=== PATIENT | female | born 1960 | race African-American/Black ===

== ENCOUNTER 2021-05-01 22:23 | Inpatient (IN) | payer OTHER ==
[~2021-05-01] VITALS: Ht 165.1 cm; Wt 119.7 kg
[2021-05-01] MEDS ORDERED: ACETAMINOPHEN 325MG TABLET PO STA (22:48)
[2021-05-01] MEDS ORDERED: CEFTRIAXONE 1 G PREMIX 50 ML IV ONE (23:00)
[2021-05-01] MEDS ORDERED: SODIUM CHLORIDE 0.9% 1000ML BAG (SEPSIS BOLUS) IV ONE (23:00)
[2021-05-01] MEDS ORDERED: AZITHROMYCIN 500MG/250ML 250 ML IV ONE (23:00)
[2021-05-01 23:29] LABS: BASOPHILS % 0.2 % (0.0-2.0); HEMATOCRIT. 35.6 % (36.0-48.0); HEMOGLOBIN. 11.9 g/dL (12.0-16.0); LYMPHOCYTES % 15.7 % (20.0-50.0); MEAN CORPUSCULAR HEMOGLOBIN 26.9 pg (28.0-32.0); MEAN CORPUSCULAR VOLUME 80.4 fL (81.0-99.0); MEAN PLATELET VOLUME 10.2 fl (7.4-10.4); MONOCYTES % 3.5 % (2.0-8.0); NEUTROPHILS % 80.6 % (40.0-76.0); PLATELET 174 x1000/uL (130-400); RED BLOOD CELL COUNT 4.43 mill/uL (4.2-5.4); RED CELL DISTRIBUTION WIDTH 14.6 % (11.6-14.6)
[2021-05-01 23:32] LABS: CHLORIDE 102 mEq/L (98-107)
[2021-05-01 23:53] LABS: D-DIMER 0.53 mg/L FEU (<0.50); PROTHROMBIN TIME 10.5 sec (9.6-11.0)
[2021-05-02] MEDS ORDERED: FAMOTIDINE 20MG/2ML VIAL IV STA (00:35)
[2021-05-02] MEDS ORDERED: DEXAMETHASONE 4MG/ML 1ML VIAL IV SCH (01:00)
[2021-05-02] MEDS ORDERED: DEXTROSE 50% WATER 50ML SYRINGE IV PRN (01:30)
[2021-05-02] MEDS ORDERED: AZITHROMYCIN 500MG/250ML 250 ML IV ONE (01:30)
[2021-05-02 03:40] LABS: CLARITY URINE CLEAR (CLEAR); COLOR URINE YELLOW (YELLOW); KETONES URINE NEGATIVE (NEGATIVE); LEUKOCYTE ESTERASE URINE TRACE (NEGATIVE); NITRITE URINE NEGATIVE (NEGATIVE); OCCULT BLOOD URINE NEGATIVE (NEGATIVE); PH URINE 5.5 (4.5-8.0); PROTEIN URINE 2+ (NEGATIVE); SPECIFIC GRAVITY URINE 1.017 (1.005-1.030); UROBILINOGEN URINE 0.2 E.U./dL (0.2-1.0)
[2021-05-02] MEDS ORDERED: GUAIFENESIN 200MG/10ML SUGAR FREE UDC PO PRN (06:15)
[2021-05-02] MEDS ORDERED: GUAIFENESIN 200MG TABLET PO PRN (06:15)
[2021-05-02] MEDS: BLOOD SUGAR DIAGNOSTIC STRIP TEST SCH ×4 (07:01→21:57)
[2021-05-02] MEDS: INSULIN LISPRO 100 UNITS/ML SUBCUT SCH ×4 (07:10→21:00)
[2021-05-02] MEDS ORDERED: FAMOTIDINE 20MG/2ML VIAL IV SCH (09:00)
[2021-05-02] MEDS: DEXAMETHASONE 10 MG/ML VIAL IV SCH (09:14)
[2021-05-02] MEDS: FAMOTIDINE 20MG/2ML VIAL IV SCH ×2 (09:14→22:01)
[2021-05-02] MEDS: ENOXAPARIN 40MG/0.4ML SYR SUBCUT SCH (09:14)
[2021-05-02 10:46] VITALS: BP 119/64
[2021-05-02 12:00] VITALS: BP 99/58
[2021-05-02] MEDS: GUAIFENESIN-DM 200MG-20MG/10ML UDC PO PRN ×3 (12:55→22:57)
[2021-05-02] MEDS: ASCORBIC ACID 250 MG TABLET PO SCH (12:56)
[2021-05-02] MEDS: CHOLECALCIFEROL (D3) 1000 UNIT TABLET PO SCH (12:56)
[2021-05-02] MEDS: ZINC SULFATE 220 MG ( 50 ) CAPSULE PO SCH (12:56)
[2021-05-02 16:00] VITALS: BP 108/73
[2021-05-02] MEDS: ACETAMINOPHEN 325MG TABLET PO PRN (17:46)
[2021-05-02 20:00] VITALS: BP 117/74
[2021-05-02] MEDS ORDERED: CEFTRIAXONE 1,000 MG in DEXTROSE 5% WATER 50 ML IV SCH (21:00)
[2021-05-02] MEDS: CEFTRIAXONE 1,000 MG in DEXTROSE 5% WATER 50 ML IV SCH (22:01)
[2021-05-02] MEDS: AZITHROMYCIN 500MG in DEXTROSE 5% WATER 250ML IV SCH (22:01)
[2021-05-03] MEDS ORDERED: AZITHROMYCIN 250 MG in DEXT 5% WATER 250 ML IV SCH
[2021-05-03] MEDS: BLOOD SUGAR DIAGNOSTIC STRIP TEST SCH ×4 (05:03→21:01)
[2021-05-03] MEDS: GUAIFENESIN-DM 200MG-20MG/10ML UDC PO PRN ×2 (05:06→19:26)
[2021-05-03] MEDS: INSULIN LISPRO 100 UNITS/ML SUBCUT SCH ×4 (07:45→21:00)
[2021-05-03 08:00] VITALS: BP 107/74
[2021-05-03] MEDS: DEXAMETHASONE 10 MG/ML VIAL IV SCH (08:16)
[2021-05-03] MEDS: CHOLECALCIFEROL (D3) 1000 UNIT TABLET PO SCH (08:16)
[2021-05-03] MEDS: ASCORBIC ACID 250 MG TABLET PO SCH (08:16)
[2021-05-03] MEDS: FAMOTIDINE 20MG/2ML VIAL IV SCH ×2 (08:16→21:05)
[2021-05-03] MEDS: ZINC SULFATE 220 MG ( 50 ) CAPSULE PO SCH (08:16)
[2021-05-03] MEDS: ENOXAPARIN 40MG/0.4ML SYR SUBCUT SCH (08:17)
[2021-05-03 12:00] VITALS: BP 120/78
[2021-05-03] MEDS ORDERED: DOCUSATE SODIUM SUGAR FREE 100MG/10ML UDC NG PRN (13:00)
[2021-05-03 16:00] VITALS: BP 112/71
[2021-05-03 20:00] VITALS: BP 108/68
[2021-05-03] MEDS: AZITHROMYCIN 500MG in DEXTROSE 5% WATER 250ML IV SCH (21:05)
[2021-05-03] MEDS: CEFTRIAXONE 1,000 MG in DEXTROSE 5% WATER 50 ML IV SCH (21:05)
[2021-05-03] MEDS: ACETAMINOPHEN 325MG TABLET PO PRN (21:09)
[2021-05-04] VITALS: BP 116/72
[2021-05-04] MEDS: GUAIFENESIN-DM 200MG-20MG/10ML UDC PO PRN ×2 (03:23→16:14)
[2021-05-04 04:00] VITALS: BP 121/78
[2021-05-04 05:16] LABS: BASOPHILS % 0.1 % (0.0-2.0); HEMATOCRIT. 36.2 % (36.0-48.0); LYMPHOCYTES % 7.4 % (20.0-50.0); MEAN CORPUSCULAR HEMOGLOBIN 26.6 pg (28.0-32.0); MEAN CORPUSCULAR VOLUME 80.4 fL (81.0-99.0); MEAN PLATELET VOLUME 9.8 fl (7.4-10.4); MONOCYTES % 3.6 % (2.0-8.0); NEUTROPHILS % 88.9 % (40.0-76.0); PLATELET 235 x1000/uL (130-400); RED CELL DISTRIBUTION WIDTH 14.9 % (11.6-14.6)
[2021-05-04 05:53] LABS: CHLORIDE 105 mEq/L (98-107)
[2021-05-04 08:00] VITALS: BP 133/81
[2021-05-04] MEDS: INSULIN LISPRO 100 UNITS/ML SUBCUT SCH ×2 (08:10→12:18)
[2021-05-04] MEDS: BLOOD SUGAR DIAGNOSTIC STRIP TEST SCH ×2 (08:20→12:18)
[2021-05-04] MEDS: ASCORBIC ACID 250 MG TABLET PO SCH (08:21)
[2021-05-04] MEDS: FAMOTIDINE 20MG/2ML VIAL IV SCH ×2 (08:21→21:32)
[2021-05-04] MEDS: CHOLECALCIFEROL (D3) 1000 UNIT TABLET PO SCH (08:21)
[2021-05-04] MEDS: DEXAMETHASONE 10 MG/ML VIAL IV SCH (08:22)
[2021-05-04] MEDS: ZINC SULFATE 220 MG ( 50 ) CAPSULE PO SCH (08:22)
[2021-05-04] MEDS: ENOXAPARIN 40MG/0.4ML SYR SUBCUT SCH (08:22)
[2021-05-04 12:00] VITALS: BP 123/71
[2021-05-04 16:00] VITALS: BP 119/72
[2021-05-04 20:00] VITALS: BP 114/68
[2021-05-04] MEDS: AZITHROMYCIN 500MG in DEXTROSE 5% WATER 250ML IV SCH ×2 (21:32→23:43)
[2021-05-04] MEDS: CEFTRIAXONE 1,000 MG in DEXTROSE 5% WATER 50 ML IV SCH (21:32)
[2021-05-04] MEDS ORDERED: AZITHROMYCIN 500 MG TABLET PO NR (23:45)
[2021-05-05] VITALS: BP 110/62
[2021-05-05 04:00] VITALS: BP 118/77
[2021-05-05 08:00] VITALS: BP 124/79
[2021-05-05] MEDS: FAMOTIDINE 20MG/2ML VIAL IV SCH ×2 (09:52→22:10)
[2021-05-05] MEDS: ENOXAPARIN 40MG/0.4ML SYR SUBCUT SCH (09:52)
[2021-05-05] MEDS: ZINC SULFATE 220 MG ( 50 ) CAPSULE PO SCH (09:53)
[2021-05-05] MEDS: CHOLECALCIFEROL (D3) 1000 UNIT TABLET PO SCH (09:53)
[2021-05-05] MEDS: ASCORBIC ACID 250 MG TABLET PO SCH (09:53)
[2021-05-05] MEDS: DEXAMETHASONE 10 MG/ML VIAL IV SCH (09:53)
[2021-05-05 12:00] VITALS: BP 141/83
[2021-05-05 16:00] VITALS: BP 124/68
[2021-05-05] MEDS ORDERED: DOCUSATE SODIUM SUGAR FREE 100MG/10ML UDC PO PRN (18:30)
[2021-05-05] MEDS: BENZONATATE 100MG CAPSULE PO PRN (18:44)
[2021-05-05] MEDS: LACTULOSE 20G/30ML UDC PO PRN (18:45)
[2021-05-05] MEDS: ACETAMINOPHEN 650MG/20.3ML UDC PO PRN (19:17)
[2021-05-05] MEDS ORDERED: BENZONATATE 200MG CAPSULE PO NR (19:30)
[2021-05-05 20:42] VITALS: BP 160/91
[2021-05-05] MEDS: AZITHROMYCIN 500MG in DEXTROSE 5% WATER 250ML IV SCH (22:10)
[2021-05-05] MEDS: ENOXAPARIN 30MG/0.3ML SYR SUBCUT SCH (22:10)
[2021-05-05] MEDS: CEFTRIAXONE 1,000 MG in DEXTROSE 5% WATER 50 ML IV SCH (22:10)
[2021-05-06] VITALS: BP 131/76
[2021-05-06 04:00] VITALS: BP 113/71
[2021-05-06 08:00] VITALS: BP 133/70
[2021-05-06] MEDS: FAMOTIDINE 20MG/2ML VIAL IV SCH ×2 (09:06→20:26)
[2021-05-06] MEDS: CHOLECALCIFEROL (D3) 1000 UNIT TABLET PO SCH (09:06)
[2021-05-06] MEDS: ENOXAPARIN 30MG/0.3ML SYR SUBCUT SCH ×2 (09:06→20:26)
[2021-05-06] MEDS: DEXAMETHASONE 10 MG/ML VIAL IV SCH (09:06)
[2021-05-06] MEDS: ZINC SULFATE 220 MG ( 50 ) CAPSULE PO SCH (09:06)
[2021-05-06] MEDS: ASCORBIC ACID 250 MG TABLET PO SCH (09:07)
[2021-05-06 12:00] VITALS: BP 121/74
[2021-05-06 16:00] VITALS: BP 119/64
[2021-05-06 20:00] VITALS: BP 123/78
[2021-05-06] MEDS: AZITHROMYCIN 500MG in DEXTROSE 5% WATER 250ML IV SCH (20:25)
[2021-05-06] MEDS: BENZONATATE 100MG CAPSULE PO PRN (20:26)
[2021-05-06] MEDS: ACETAMINOPHEN 325MG TABLET PO PRN (20:26)
[2021-05-06] MEDS: CEFTRIAXONE 1,000 MG in DEXTROSE 5% WATER 50 ML IV SCH (20:26)
[2021-05-06 23:44] LABS: BG BASE EXCESS 1.4 mmol/L (-2.0-2.0); BG CARBOXYHEMOGLOBIN 0.3 % (0.5-1.5); BG DEOXYHEMOGLOBIN 1.4 % (0.0-5.0); BG FRACTION INSPIRED OXYGEN 100; BG HCO3 ACT 24.4 mmol/L (22.0-26.0); BG METHEMOGLOBIN 0.2 % (0.0-1.5); BG OXYGEN SATURATION 98.6 % (92.0-98.5); BG OXYHEMOGLOBIN 98.1 % (94.0-97.0); BG PCO2 33.5 mmHg (35.0-45.0); BG PH 7.481 (7.350-7.450); BG SAMPLE SITE RIGHT RADIAL; BG TOTAL HEMOGLOBIN 12.6 g/dL (12.0-18.0); BG VENT MODE MASK - BIPAP
[2021-05-07] VITALS: BP 127/68
[2021-05-07 04:00] VITALS: BP 115/72
[2021-05-07 06:38] LABS: CHLORIDE 102 mEq/L (98-107)
[2021-05-07 06:53] LABS: HEMATOCRIT. 35.5 % (36.0-48.0); HEMOGLOBIN. 11.9 g/dL (12.0-16.0); MEAN CORPUSCULAR HEMOGLOBIN 26.7 pg (28.0-32.0); MEAN CORPUSCULAR VOLUME 79.9 fL (81.0-99.0); PLATELET 204 x1000/uL (130-400); RED BLOOD CELL COUNT 4.45 mill/uL (4.2-5.4); RED CELL DISTRIBUTION WIDTH 14.9 % (11.6-14.6)
[2021-05-07 08:00] VITALS: BP 127/85
[2021-05-07] MEDS: FAMOTIDINE 20MG/2ML VIAL IV SCH ×2 (08:41→20:28)
[2021-05-07] MEDS: ASCORBIC ACID 250 MG TABLET PO SCH (08:42)
[2021-05-07] MEDS: DEXAMETHASONE 10 MG/ML VIAL IV SCH (08:42)
[2021-05-07] MEDS: CHOLECALCIFEROL (D3) 1000 UNIT TABLET PO SCH (08:42)
[2021-05-07] MEDS: ACETAMINOPHEN 325MG TABLET PO PRN (08:42)
[2021-05-07] MEDS: ZINC SULFATE 220 MG ( 50 ) CAPSULE PO SCH (08:42)
[2021-05-07] MEDS: ENOXAPARIN 30MG/0.3ML SYR SUBCUT SCH ×2 (08:43→20:28)
[2021-05-07 12:00] VITALS: BP 127/82
[2021-05-07 16:00] VITALS: BP 110/71
[2021-05-07 20:00] VITALS: BP 108/46
[2021-05-08] VITALS: BP 117/73
[2021-05-08 05:43] LABS: CHLORIDE 103 mEq/L (98-107)
[2021-05-08 06:25] LABS: PLATELET ESTIMATE NORMAL
[2021-05-08 08:00] VITALS: BP 111/64
[2021-05-08] MEDS: CHOLECALCIFEROL (D3) 1000 UNIT TABLET PO SCH (09:50)
[2021-05-08] MEDS: DEXAMETHASONE 10 MG/ML VIAL IV SCH (09:50)
[2021-05-08] MEDS: ZINC SULFATE 220 MG ( 50 ) CAPSULE PO SCH (09:50)
[2021-05-08] MEDS: ENOXAPARIN 30MG/0.3ML SYR SUBCUT SCH ×2 (09:50→21:31)
[2021-05-08] MEDS: FAMOTIDINE 20MG/2ML VIAL IV SCH ×2 (09:50→21:31)
[2021-05-08] MEDS: ASCORBIC ACID 250 MG TABLET PO SCH (09:51)
[2021-05-08 12:00] VITALS: BP 119/77
[2021-05-08 16:00] VITALS: BP 134/68
[2021-05-08 20:00] VITALS: BP 112/71
[2021-05-09] VITALS (21 sets, daily range): BP systolic 114–147; BP diastolic 68–89
[2021-05-09 07:12] LABS: HEMATOCRIT. 35.7 % (36.0-48.0); HEMOGLOBIN. 11.6 g/dL (12.0-16.0); MEAN CORPUSCULAR HEMOGLOBIN 26.3 pg (28.0-32.0); MEAN CORPUSCULAR VOLUME 80.5 fL (81.0-99.0); MEAN PLATELET VOLUME 8.9 fl (7.4-10.4); PLATELET 211 x1000/uL (130-400); RED BLOOD CELL COUNT 4.43 mill/uL (4.2-5.4); RED CELL DISTRIBUTION WIDTH 14.7 % (11.6-14.6)
[2021-05-09 07:54] LABS: CHLORIDE 102 mEq/L (98-107)
[2021-05-09] MEDS: ACETAMINOPHEN 650MG/20.3ML UDC PO PRN ×2 (08:08→23:38)
[2021-05-09] MEDS: DEXAMETHASONE 10 MG/ML VIAL IV SCH (08:08)
[2021-05-09] MEDS: CHOLECALCIFEROL (D3) 1000 UNIT TABLET PO SCH (08:08)
[2021-05-09] MEDS: FAMOTIDINE 20MG/2ML VIAL IV SCH ×2 (08:08→20:01)
[2021-05-09] MEDS: ASCORBIC ACID 250 MG TABLET PO SCH (08:08)
[2021-05-09] MEDS: ZINC SULFATE 220 MG ( 50 ) CAPSULE PO SCH (08:08)
[2021-05-09] MEDS: ENOXAPARIN 30MG/0.3ML SYR SUBCUT SCH ×2 (08:09→20:01)
[2021-05-09] MEDS ORDERED: LIDOCAINE HCL/PF 1% 2ML VIAL ONE (09:32)
[2021-05-09 10:07] LABS: BG BASE EXCESS -0.2 mmol/L (-2.0-2.0); BG CARBOXYHEMOGLOBIN 0.2 % (0.5-1.5); BG DEOXYHEMOGLOBIN 9.6 % (0.0-5.0); BG HCO3 ACT 21.7 mmol/L (22.0-26.0); BG METHEMOGLOBIN 0.3 % (0.0-1.5); BG OXYGEN SATURATION 90.4 % (92.0-98.5); BG OXYHEMOGLOBIN 89.9 % (94.0-97.0); BG PCO2 27.6 mmHg (35.0-45.0); BG PH 7.513 (7.350-7.450); BG PO2 55.8 mmHg (75.0-100.0); BG SAMPLE SITE RIGHT BRACHIAL; BG TOTAL HEMOGLOBIN 12.5 g/dL (12.0-18.0); BG VENT MODE VAPOTHERM
[2021-05-09 12:18] LABS: HEMATOCRIT. 34.3 % (36.0-48.0); HEMOGLOBIN. 11.1 g/dL (12.0-16.0); MEAN CORPUSCULAR HEMOGLOBIN 26.2 pg (28.0-32.0); MEAN CORPUSCULAR VOLUME 80.6 fL (81.0-99.0); MEAN PLATELET VOLUME 8.9 fl (7.4-10.4); PLATELET 204 x1000/uL (130-400); RED BLOOD CELL COUNT 4.25 mill/uL (4.2-5.4); RED CELL DISTRIBUTION WIDTH 14.5 % (11.6-14.6)
[2021-05-09 12:20] LABS: PLATELET ESTIMATE NORMAL
[2021-05-09 13:12] LABS: PLATELET ESTIMATE NORMAL
[2021-05-09] MEDS: GUAIFENESIN-DM 200MG-20MG/10ML UDC PO PRN (16:49)
[2021-05-10] VITALS (48 sets, daily range): BP systolic 112–154; BP diastolic 44–94
[2021-05-10 05:49] LABS: HEMATOCRIT. 33.2 % (36.0-48.0); HEMOGLOBIN. 10.9 g/dL (12.0-16.0); MEAN CORPUSCULAR HEMOGLOBIN 26.2 pg (28.0-32.0); MEAN CORPUSCULAR VOLUME 79.5 fL (81.0-99.0); PLATELET 196 x1000/uL (130-400); RED BLOOD CELL COUNT 4.18 mill/uL (4.2-5.4); RED CELL DISTRIBUTION WIDTH 14.8 % (11.6-14.6)
[2021-05-10 05:59] LABS: CHLORIDE 106 mEq/L (98-107)
[2021-05-10 08:41] LABS: PLATELET ESTIMATE NORMAL
[2021-05-10] MEDS: CHOLECALCIFEROL (D3) 1000 UNIT TABLET PO SCH (09:00)
[2021-05-10] MEDS: ASCORBIC ACID 250 MG TABLET PO SCH (09:00)
[2021-05-10] MEDS: ZINC SULFATE 220 MG ( 50 ) CAPSULE PO SCH (09:00)
[2021-05-10] MEDS: FAMOTIDINE 20MG/2ML VIAL IV SCH ×2 (09:00→21:22)
[2021-05-10] MEDS: DEXAMETHASONE 10 MG/ML VIAL IV SCH (09:00)
[2021-05-10] MEDS: ENOXAPARIN 30MG/0.3ML SYR SUBCUT SCH ×2 (09:00→21:23)
[2021-05-10] MEDS: BENZONATATE 100MG CAPSULE PO PRN (10:08)
[2021-05-10] MEDS: ACETAMINOPHEN 650MG/20.3ML UDC PO PRN (10:08)
[2021-05-10] MEDS: GUAIFENESIN-DM 200MG-20MG/10ML UDC PO PRN (10:08)
[2021-05-10] MEDS: DIPHENHYDRAMINE 50MG/ML VIAL IV PRN (14:05)
[2021-05-10] MEDS: CEFEPIME 2,000 MG in DEXT 5% WATER 100 ML IV SCH (14:05)
[2021-05-11] VITALS (36 sets, daily range): BP systolic 114–148; BP diastolic 57–100
[2021-05-11] MEDS: DIPHENHYDRAMINE 50MG/ML VIAL IV PRN (02:09)
[2021-05-11] MEDS: CEFEPIME 2,000 MG in DEXT 5% WATER 100 ML IV SCH ×2 (02:09→13:21)
[2021-05-11] MEDS: GUAIFENESIN-DM 200MG-20MG/10ML UDC PO PRN (02:09)
[2021-05-11] MEDS: ALBUTEROL 6.7GM HFA INHALER ORI SCH ×3 (05:00→20:41)
[2021-05-11 06:05] LABS: HEMATOCRIT. 34.7 % (36.0-48.0); HEMOGLOBIN. 11.3 g/dL (12.0-16.0); MEAN CORPUSCULAR HEMOGLOBIN 26.3 pg (28.0-32.0); MEAN CORPUSCULAR VOLUME 80.8 fL (81.0-99.0); MEAN PLATELET VOLUME 9.4 fl (7.4-10.4); PLATELET 211 x1000/uL (130-400); RED BLOOD CELL COUNT 4.29 mill/uL (4.2-5.4)
[2021-05-11 06:22] LABS: CHLORIDE 105 mEq/L (98-107)
[2021-05-11] MEDS: DEXAMETHASONE 10 MG/ML VIAL IV SCH (08:21)
[2021-05-11] MEDS: FAMOTIDINE 20MG/2ML VIAL IV SCH ×2 (08:21→20:07)
[2021-05-11] MEDS: ZINC SULFATE 220 MG ( 50 ) CAPSULE PO SCH (08:21)
[2021-05-11] MEDS: ASCORBIC ACID 250 MG TABLET PO SCH (08:22)
[2021-05-11] MEDS: ENOXAPARIN 30MG/0.3ML SYR SUBCUT SCH ×2 (08:22→20:07)
[2021-05-11] MEDS: CHOLECALCIFEROL (D3) 1000 UNIT TABLET PO SCH (08:22)
[2021-05-11 17:39] LABS: PLATELET ESTIMATE NORMAL
[2021-05-12] VITALS (12 sets, daily range): BP systolic 113–135; BP diastolic 61–96
[2021-05-12] MEDS ORDERED: VANCOMYCIN 1,750 MG in DEXT 5% WATER 500 ML IV NR
[2021-05-12] MEDS: ALBUTEROL 6.7GM HFA INHALER ORI SCH (02:03)
[2021-05-12] MEDS: CEFEPIME 2,000 MG in DEXT 5% WATER 100 ML IV SCH ×2 (03:17→17:10)
[2021-05-12] MEDS: DEXAMETHASONE 10 MG/ML VIAL IV SCH (09:03)
[2021-05-12] MEDS: CHOLECALCIFEROL (D3) 1000 UNIT TABLET PO SCH (09:03)
[2021-05-12] MEDS: ASCORBIC ACID 250 MG TABLET PO SCH (09:03)
[2021-05-12] MEDS: FAMOTIDINE 20MG/2ML VIAL IV SCH ×2 (09:03→20:56)
[2021-05-12] MEDS: ZINC SULFATE 220 MG ( 50 ) CAPSULE PO SCH (09:03)
[2021-05-12] MEDS: ENOXAPARIN 30MG/0.3ML SYR SUBCUT SCH ×2 (09:04→20:58)
[2021-05-12 09:11] LABS: HEMATOCRIT. 35.1 % (36.0-48.0); HEMOGLOBIN. 11.3 g/dL (12.0-16.0); MEAN CORPUSCULAR HEMOGLOBIN 26.2 pg (28.0-32.0); MEAN CORPUSCULAR VOLUME 81.1 fL (81.0-99.0); PLATELET 207 x1000/uL (130-400); RED BLOOD CELL COUNT 4.33 mill/uL (4.2-5.4); RED CELL DISTRIBUTION WIDTH 14.6 % (11.6-14.6)
[2021-05-12 09:31] LABS: CHLORIDE 101 mEq/L (98-107)
[2021-05-12] MEDS ORDERED: IPRATROPIUM/ALBUTEROL 0.5-3(2.5)MG/3ML NEB HHN PRN (14:45)
[2021-05-12] MEDS: IPRATROPIUM/ALBUTEROL 0.5-3(2.5)MG/3ML NEB HHN SCH ×2 (16:00→21:19)
[2021-05-12] MEDS: VANCOMYCIN 1 G PREMIX 200 ML IV SCH (17:02)
[2021-05-12] MEDS: LORAZEPAM 2MG/ML CPJ IV PRN ×2 (17:43→20:58)
[2021-05-12 18:28] LABS: PLATELET ESTIMATE NORMAL
[2021-05-12] MEDS ORDERED: MEROPENEM 1,000 MG in SODIUM CHLORIDE 0.9% 100 ML IV SCH (20:00)
[2021-05-12] MEDS: DIPHENHYDRAMINE 50MG/ML VIAL IV PRN (21:37)
[2021-05-12] MEDS: METOPROLOL TARTRATE 5MG/5ML VIAL IV PRN (21:38)
[2021-05-12] MEDS: SODIUM CHLORIDE 0.9% 1,000 ML IV SCH (21:52)
[2021-05-13] VITALS (70 sets, daily range): BP systolic 81–180; BP diastolic 31–106
[2021-05-13] MEDS: IPRATROPIUM/ALBUTEROL 0.5-3(2.5)MG/3ML NEB HHN SCH ×5 (00:18→21:10)
[2021-05-13] MEDS: VANCOMYCIN 1 G PREMIX 200 ML IV SCH ×2 (00:29→13:37)
[2021-05-13] MEDS: LORAZEPAM 2MG/ML CPJ IV PRN (04:15)
[2021-05-13] MEDS: CEFEPIME 2,000 MG in DEXT 5% WATER 100 ML IV SCH ×2 (04:15→16:52)
[2021-05-13] MEDS: BUDESONIDE 0.5MG/2ML NEB HHN SCH ×2 (07:55→21:10)
[2021-05-13] MEDS ORDERED: SODIUM CHLORIDE 0.9% 10ML VIAL ONE (08:23)
[2021-05-13] MEDS ORDERED: ETOMIDATE 2MG/ML 10ML VIAL IV ONE (08:23)
[2021-05-13] MEDS ORDERED: VECURONIUM BROMIDE 10 MG/VIAL IV ONE (08:23)
[2021-05-13 08:59] LABS: BG BASE EXCESS -3.5 mmol/L (-2.0-2.0); BG CARBOXYHEMOGLOBIN 0.7 % (0.5-1.5); BG DEOXYHEMOGLOBIN 8.4 % (0.0-5.0); BG FRACTION INSPIRED OXYGEN 100; BG HCO3 ACT 21.4 mmol/L (22.0-26.0); BG METHEMOGLOBIN 0.4 % (0.0-1.5); BG OXYGEN SATURATION 91.5 % (92.0-98.5); BG OXYHEMOGLOBIN 90.5 % (94.0-97.0); BG PCO2 38.2 mmHg (35.0-45.0); BG PH 7.367 (7.350-7.450); BG PO2 64.6 mmHg (75.0-100.0); BG SAMPLE SITE LEFT BRACHIAL; BG TOTAL HEMOGLOBIN 12.6 g/dL (12.0-18.0); BG TOTAL RESPIRATORY RATE 54 b/min; BG VENT MODE MASK - BIPAP
[2021-05-13] MEDS: PROPOFOL 10MG/ML 100ML 100 ML IV PRN ×3 (10:08→17:21)
[2021-05-13] MEDS: CHOLECALCIFEROL (D3) 1000 UNIT TABLET PO SCH (10:27)
[2021-05-13] MEDS: ACETAMINOPHEN 325MG TABLET PO PRN (10:28)
[2021-05-13] MEDS: METOPROLOL TARTRATE 5MG/5ML VIAL IV PRN (10:28)
[2021-05-13] MEDS: ZINC SULFATE 220 MG ( 50 ) CAPSULE PO SCH (10:29)
[2021-05-13] MEDS: ASCORBIC ACID 250 MG TABLET PO SCH (10:29)
[2021-05-13] MEDS: ENOXAPARIN 30MG/0.3ML SYR SUBCUT SCH ×2 (10:29→22:13)
[2021-05-13] MEDS: DEXAMETHASONE 10 MG/ML VIAL IV SCH (10:29)
[2021-05-13] MEDS: FAMOTIDINE 20MG/2ML VIAL IV SCH ×2 (10:29→22:12)
[2021-05-13] MEDS: FENTANYL CITRATE/PF 2,500 MCG in SODIUM CHLORIDE 0.9% 200 ML IV PRN ×2 (10:48→12:23)
[2021-05-13 11:25] LABS: BG BASE EXCESS -5.3 mmol/L (-2.0-2.0); BG CARBOXYHEMOGLOBIN 0.7 % (0.5-1.5); BG DEOXYHEMOGLOBIN 10.5 % (0.0-5.0); BG FRACTION INSPIRED OXYGEN 100; BG HCO3 ACT 21.8 mmol/L (22.0-26.0); BG METHEMOGLOBIN 0.6 % (0.0-1.5); BG OXYGEN SATURATION 89.4 % (92.0-98.5); BG OXYHEMOGLOBIN 88.2 % (94.0-97.0); BG PH 7.266 (7.350-7.450); BG PO2 65.6 mmHg (75.0-100.0); BG SAMPLE SITE LEFT BRACHIAL; BG TOTAL HEMOGLOBIN 12.7 g/dL (12.0-18.0); BG TOTAL RESPIRATORY RATE 34 b/min; BG VENT MODE VENT - AC
[2021-05-13] MEDS: PHENYLEPHRINE 100 MG in DEXT 5% WATER 240 ML IV PRN (12:24)
[2021-05-13] MEDS: SODIUM CHLORIDE 0.9% 1,000 ML IV SCH (13:37)
[2021-05-13 17:25] LABS: HEMATOCRIT. 34.3 % (36.0-48.0); HEMOGLOBIN. 11.1 g/dL (12.0-16.0); MEAN CORPUSCULAR HEMOGLOBIN 25.9 pg (28.0-32.0); MEAN CORPUSCULAR VOLUME 80.3 fL (81.0-99.0); MEAN PLATELET VOLUME 9.9 fl (7.4-10.4); PLATELET 263 x1000/uL (130-400); RED BLOOD CELL COUNT 4.28 mill/uL (4.2-5.4); RED CELL DISTRIBUTION WIDTH 15.1 % (11.6-14.6)
[2021-05-13 18:00] LABS: PLATELET ESTIMATE NORMAL
[2021-05-13] MEDS ORDERED: SODIUM POLYSTYRENE SULFONATE 15 G/60 ML BOT PO NR (21:00)
[2021-05-14] VITALS (94 sets, daily range): BP systolic 88–143; BP diastolic 54–95
[2021-05-14] MEDS ORDERED: VANCOMYCIN 750 MG PREMIX 150 ML IV SCH
[2021-05-14] MEDS: PROPOFOL 10MG/ML 100ML 100 ML IV PRN ×4 (00:08→16:26)
[2021-05-14] MEDS: PHENYLEPHRINE 100 MG in DEXT 5% WATER 240 ML IV PRN ×2 (00:50→12:06)
[2021-05-14] MEDS: IPRATROPIUM/ALBUTEROL 0.5-3(2.5)MG/3ML NEB HHN SCH ×6 (00:50→20:42)
[2021-05-14] MEDS: CEFEPIME 2,000 MG in DEXT 5% WATER 100 ML IV SCH (04:38)
[2021-05-14] MEDS: SODIUM CHLORIDE 0.9% 1,000 ML IV SCH ×2 (05:41→22:20)
[2021-05-14 06:38] LABS: HEMATOCRIT. 34.1 % (36.0-48.0); HEMOGLOBIN. 10.6 g/dL (12.0-16.0); MEAN CORPUSCULAR HEMOGLOBIN 25.2 pg (28.0-32.0); MEAN CORPUSCULAR VOLUME 80.8 fL (81.0-99.0); MEAN PLATELET VOLUME 9.8 fl (7.4-10.4); PLATELET 245 x1000/uL (130-400); RED BLOOD CELL COUNT 4.22 mill/uL (4.2-5.4); RED CELL DISTRIBUTION WIDTH 14.9 % (11.6-14.6)
[2021-05-14 08:25] LABS: BG CARBOXYHEMOGLOBIN 0.3 % (0.5-1.5); BG DEOXYHEMOGLOBIN 0.7 % (0.0-5.0); BG FRACTION INSPIRED OXYGEN 100; BG HCO3 ACT 21.3 mmol/L (22.0-26.0); BG METHEMOGLOBIN 0.4 % (0.0-1.5); BG OXYGEN SATURATION 99.3 % (92.0-98.5); BG OXYHEMOGLOBIN 98.6 % (94.0-97.0); BG PCO2 44.1 mmHg (35.0-45.0); BG PH 7.301 (7.350-7.450); BG PO2 206.4 mmHg (75.0-100.0); BG SAMPLE SITE LEFT BRACHIAL; BG TOTAL HEMOGLOBIN 11.7 g/dL (12.0-18.0); BG TOTAL RESPIRATORY RATE 34 b/min; BG VENT MODE VENT - AC
[2021-05-14] MEDS: BUDESONIDE 0.5MG/2ML NEB HHN SCH ×2 (08:48→20:42)
[2021-05-14] MEDS: ENOXAPARIN 30MG/0.3ML SYR SUBCUT SCH ×2 (09:04→21:06)
[2021-05-14] MEDS: ASCORBIC ACID 250 MG TABLET PO SCH (09:04)
[2021-05-14] MEDS: ZINC SULFATE 220 MG ( 50 ) CAPSULE PO SCH (09:04)
[2021-05-14] MEDS: CHOLECALCIFEROL (D3) 1000 UNIT TABLET PO SCH (09:04)
[2021-05-14] MEDS: FAMOTIDINE 20MG/2ML VIAL IV SCH ×2 (09:04→21:06)
[2021-05-14] MEDS: DEXAMETHASONE 10 MG/ML VIAL IV SCH (09:04)
[2021-05-14] MEDS: FENTANYL CITRATE/PF 2,500 MCG in SODIUM CHLORIDE 0.9% 200 ML IV PRN (10:40)
[2021-05-14] MEDS: CEFEPIME 1,000 MG in DEXTROSE 5% WATER 50 ML IV SCH (17:09)
[2021-05-14 17:28] LABS: PLATELET ESTIMATE NORMAL
[2021-05-14] MEDS ORDERED: VANCOMYCIN 750 MG PREMIX 150 ML IV NR (18:00)
[2021-05-15] VITALS (95 sets, daily range): BP systolic 101–131; BP diastolic 50–74
[2021-05-15] MEDS: IPRATROPIUM/ALBUTEROL 0.5-3(2.5)MG/3ML NEB HHN SCH ×5 (01:14→20:17)
[2021-05-15] MEDS: PROPOFOL 10MG/ML 100ML 100 ML IV PRN ×5 (01:25→20:02)
[2021-05-15] MEDS: CEFEPIME 1,000 MG in DEXTROSE 5% WATER 50 ML IV SCH (05:30)
[2021-05-15 07:01] LABS: HEMATOCRIT. 32.4 % (36.0-48.0); HEMOGLOBIN. 10.4 g/dL (12.0-16.0); MEAN CORPUSCULAR HEMOGLOBIN 25.7 pg (28.0-32.0); MEAN CORPUSCULAR VOLUME 80.5 fL (81.0-99.0); MEAN PLATELET VOLUME 9.4 fl (7.4-10.4); PLATELET 261 x1000/uL (130-400); RED BLOOD CELL COUNT 4.03 mill/uL (4.2-5.4); RED CELL DISTRIBUTION WIDTH 15.3 % (11.6-14.6)
[2021-05-15] MEDS: DEXAMETHASONE 10 MG/ML VIAL IV SCH (08:07)
[2021-05-15] MEDS: CHOLECALCIFEROL (D3) 1000 UNIT TABLET PO SCH (08:07)
[2021-05-15] MEDS: ASCORBIC ACID 250 MG TABLET PO SCH (08:07)
[2021-05-15] MEDS: ZINC SULFATE 220 MG ( 50 ) CAPSULE PO SCH (08:07)
[2021-05-15] MEDS: FAMOTIDINE 20MG/2ML VIAL IV SCH (08:08)
[2021-05-15] MEDS: ENOXAPARIN 30MG/0.3ML SYR SUBCUT SCH (08:08)
[2021-05-15 08:20] LABS: BG BASE EXCESS -7.7 mmol/L (-2.0-2.0); BG CARBOXYHEMOGLOBIN 0.3 % (0.5-1.5); BG DEOXYHEMOGLOBIN 1.9 % (0.0-5.0); BG FRACTION INSPIRED OXYGEN 75; BG HCO3 ACT 18.2 mmol/L (22.0-26.0); BG METHEMOGLOBIN 0.3 % (0.0-1.5); BG OXYGEN SATURATION 98.1 % (92.0-98.5); BG OXYHEMOGLOBIN 97.5 % (94.0-97.0); BG PCO2 38.1 mmHg (35.0-45.0); BG PH 7.296 (7.350-7.450); BG PO2 120.1 mmHg (75.0-100.0); BG SAMPLE SITE RIGHT BRACHIAL; BG TOTAL HEMOGLOBIN 11.7 g/dL (12.0-18.0); BG VENT MODE VENT - AC
[2021-05-15] MEDS: BUDESONIDE 0.5MG/2ML NEB HHN SCH ×2 (09:08→20:17)
[2021-05-15 12:57] LABS: PLATELET ESTIMATE NORMAL
[2021-05-15] MEDS: SODIUM CHLORIDE 0.9% 1,000 ML IV SCH (15:16)
[2021-05-15 18:15] LABS: CLARITY URINE TURBID (CLEAR); COLOR URINE YELLOW (YELLOW); KETONES URINE NEGATIVE (NEGATIVE); LEUKOCYTE ESTERASE URINE TRACE (NEGATIVE); NITRITE URINE NEGATIVE (NEGATIVE); OCCULT BLOOD URINE 2+ (NEGATIVE); PROTEIN URINE 1+ (NEGATIVE); SPECIFIC GRAVITY URINE 1.012 (1.005-1.030); UROBILINOGEN URINE 0.2 E.U./dL (0.2-1.0)
[2021-05-15 18:35] LABS: SODIUM URINE RANDOM 19 mEq/L
[2021-05-15 18:36] LABS: CHLORIDE URINE RANDOM < 10 mEq/L
[2021-05-15] MEDS: FENTANYL CITRATE/PF 2,500 MCG in SODIUM CHLORIDE 0.9% 200 ML IV PRN (18:46)
[2021-05-15] MEDS ORDERED: FLUCONAZOLE 150MG TABLET PO SCH (22:00)
[2021-05-16] VITALS (99 sets, daily range): BP systolic 87–124; BP diastolic 52–74
[2021-05-16] MEDS: IPRATROPIUM/ALBUTEROL 0.5-3(2.5)MG/3ML NEB HHN SCH ×6 (00:14→21:05)
[2021-05-16] MEDS: PROPOFOL 10MG/ML 100ML 100 ML IV PRN ×3 (02:16→09:07)
[2021-05-16] MEDS ORDERED: CEFEPIME 1,000 MG in DEXTROSE 5% WATER 50 ML IV SCH (05:00)
[2021-05-16 05:39] LABS: HEMATOCRIT. 29.1 % (36.0-48.0); HEMOGLOBIN. 9.5 g/dL (12.0-16.0); MEAN CORPUSCULAR HEMOGLOBIN 26.2 pg (28.0-32.0); MEAN CORPUSCULAR VOLUME 80.1 fL (81.0-99.0); MEAN PLATELET VOLUME 9.7 fl (7.4-10.4); PLATELET 269 x1000/uL (130-400); RED BLOOD CELL COUNT 3.63 mill/uL (4.2-5.4); RED CELL DISTRIBUTION WIDTH 15.2 % (11.6-14.6)
[2021-05-16] MEDS: ENOXAPARIN 40MG/0.4ML SYR SUBCUT SCH (07:37)
[2021-05-16] MEDS: DEXAMETHASONE 10 MG/ML VIAL IV SCH (07:37)
[2021-05-16] MEDS: FAMOTIDINE 20MG/2ML VIAL IV SCH (07:37)
[2021-05-16] MEDS: ZINC SULFATE 220 MG ( 50 ) CAPSULE PO SCH (07:38)
[2021-05-16] MEDS: CHOLECALCIFEROL (D3) 1000 UNIT TABLET PO SCH (07:38)
[2021-05-16] MEDS: ASCORBIC ACID 250 MG TABLET PO SCH (07:38)
[2021-05-16] MEDS: SODIUM CHLORIDE 0.9% 1,000 ML IV SCH ×2 (07:55→23:37)
[2021-05-16] MEDS: BUDESONIDE 0.5MG/2ML NEB HHN SCH (08:40)
[2021-05-16] MEDS ORDERED: BUDESONIDE 0.5MG/2ML NEB ONE (08:48)
[2021-05-16 10:48] LABS: BG CARBOXYHEMOGLOBIN 0.1 % (0.5-1.5); BG DEOXYHEMOGLOBIN 15.9 % (0.0-5.0); BG FRACTION INSPIRED OXYGEN 65; BG HCO3 ACT 17.7 mmol/L (22.0-26.0); BG METHEMOGLOBIN 0.3 % (0.0-1.5); BG OXYHEMOGLOBIN 83.7 % (94.0-97.0); BG PCO2 32.7 mmHg (35.0-45.0); BG PH 7.351 (7.350-7.450); BG SAMPLE SITE RIGHT RADIAL; BG VENT MODE VENT - AC
[2021-05-16] MEDS: PHENYLEPHRINE 100 MG in DEXT 5% WATER 240 ML IV PRN (10:58)
[2021-05-16] MEDS: MIDAZOLAM HCL 100 MG in SODIUM CHLORIDE 0.9% 80 ML IV PRN (10:59)
[2021-05-16] MEDS: GUAIFENESIN-DM 200MG-20MG/10ML UDC PO PRN (12:17)
[2021-05-16 12:34] LABS: PLATELET ESTIMATE NORMAL
[2021-05-16] MEDS ORDERED: MEROPENEM 1,000 MG in SODIUM CHLORIDE 0.9% 100 ML IV SCH (14:15)
[2021-05-16] MEDS ORDERED: SODIUM CHLORIDE 10% FOR INH 15ML VIAL NEB INH SCH (15:00)
[2021-05-16 16:16] LABS: BG BASE EXCESS -8.5 mmol/L (-2.0-2.0); BG CARBOXYHEMOGLOBIN 0.3 % (0.5-1.5); BG DEOXYHEMOGLOBIN 1.8 % (0.0-5.0); BG FRACTION INSPIRED OXYGEN 95; BG HCO3 ACT 16.7 mmol/L (22.0-26.0); BG METHEMOGLOBIN 0.5 % (0.0-1.5); BG OXYGEN SATURATION 98.2 % (92.0-98.5); BG OXYHEMOGLOBIN 97.4 % (94.0-97.0); BG PCO2 33.4 mmHg (35.0-45.0); BG PH 7.317 (7.350-7.450); BG PO2 130.6 mmHg (75.0-100.0); BG SAMPLE SITE RIGHT RADIAL; BG TOTAL HEMOGLOBIN 10.5 g/dL (12.0-18.0); BG VENT MODE PRVC
[2021-05-16] MEDS: FENTANYL CITRATE/PF 2,500 MCG in SODIUM CHLORIDE 0.9% 200 ML IV PRN (16:17)
[2021-05-16] MEDS: MEROPENEM 500MG in NORMAL SALINE 50ML IV SCH (16:18)
[2021-05-16] MEDS ORDERED: SODIUM BICARBONATE 8.4% 1 MEQ/ML 50ML SYR IV NR (18:00)
[2021-05-16] MEDS: METOCLOPRAMIDE HCL 10MG/2ML VIAL IV SCH (21:46)
[2021-05-17] VITALS (103 sets, daily range): BP systolic 65–162; BP diastolic 37–118
[2021-05-17] MEDS: IPRATROPIUM/ALBUTEROL 0.5-3(2.5)MG/3ML NEB HHN SCH ×6 (01:15→20:47)
[2021-05-17] MEDS: MIDAZOLAM HCL 100 MG in SODIUM CHLORIDE 0.9% 80 ML IV PRN ×2 (01:24→13:50)
[2021-05-17] MEDS: MEROPENEM 500MG in NORMAL SALINE 50ML IV SCH ×2 (04:57→16:34)
[2021-05-17] MEDS: METOCLOPRAMIDE HCL 10MG/2ML VIAL IV SCH ×3 (04:57→21:54)
[2021-05-17] MEDS: FENTANYL CITRATE/PF 2,500 MCG in SODIUM CHLORIDE 0.9% 200 ML IV PRN ×2 (06:32→14:41)
[2021-05-17 07:10] LABS: BG BASE EXCESS -8.9 mmol/L (-2.0-2.0); BG CARBOXYHEMOGLOBIN 0.3 % (0.5-1.5); BG DEOXYHEMOGLOBIN 26.7 % (0.0-5.0); BG FRACTION INSPIRED OXYGEN 100; BG HCO3 ACT 17.4 mmol/L (22.0-26.0); BG METHEMOGLOBIN 0.4 % (0.0-1.5); BG OXYGEN SATURATION 73.1 % (92.0-98.5); BG OXYHEMOGLOBIN 72.6 % (94.0-97.0); BG PCO2 38.7 mmHg (35.0-45.0); BG PO2 42.4 mmHg (75.0-100.0); BG SAMPLE SITE RIGHT RADIAL; BG TOTAL HEMOGLOBIN 11.4 g/dL (12.0-18.0); BG VENT MODE COOL AEROSOL
[2021-05-17 07:15] LABS: HEMATOCRIT. 31.7 % (36.0-48.0); HEMOGLOBIN. 10.2 g/dL (12.0-16.0); MEAN CORPUSCULAR HEMOGLOBIN 25.9 pg (28.0-32.0); MEAN CORPUSCULAR VOLUME 80.8 fL (81.0-99.0); MEAN PLATELET VOLUME 9.6 fl (7.4-10.4); PLATELET 353 x1000/uL (130-400); RED BLOOD CELL COUNT 3.92 mill/uL (4.2-5.4); RED CELL DISTRIBUTION WIDTH 15.4 % (11.6-14.6)
[2021-05-17 07:39] LABS: PHOSPHORUS 5.8 mg/dL (2.5-4.9)
[2021-05-17] MEDS: FAMOTIDINE 20MG/2ML VIAL IV SCH (08:11)
[2021-05-17] MEDS: ACETAMINOPHEN 650MG/20.3ML UDC PO PRN (08:11)
[2021-05-17] MEDS: CHOLECALCIFEROL (D3) 1000 UNIT TABLET PO SCH (08:11)
[2021-05-17] MEDS: ENOXAPARIN 40MG/0.4ML SYR SUBCUT SCH (08:11)
[2021-05-17] MEDS: DEXAMETHASONE 10 MG/ML VIAL IV SCH (08:11)
[2021-05-17] MEDS: ASCORBIC ACID 250 MG TABLET PO SCH (08:12)
[2021-05-17] MEDS: ZINC SULFATE 220 MG ( 50 ) CAPSULE PO SCH (08:12)
[2021-05-17] MEDS ORDERED: DEXT 5%/0.45% NACL 1000ML 1,000 ML IV SCH (08:30)
[2021-05-17 09:06] LABS: PLATELET ESTIMATE NORMAL
[2021-05-17] MEDS: PROPOFOL 10MG/ML 100ML 100 ML IV PRN ×2 (09:10→22:13)
[2021-05-17] MEDS: SODIUM BICARBONATE 100 MEQ in DEXTROSE 5% WATER 1,000 ML IV SCH (09:28)
[2021-05-17 13:30] LABS: BG BASE EXCESS -9.7 mmol/L (-2.0-2.0); BG CARBOXYHEMOGLOBIN 0.9 % (0.5-1.5); BG DEOXYHEMOGLOBIN 8.9 % (0.0-5.0); BG FRACTION INSPIRED OXYGEN 100; BG HCO3 ACT 16.2 mmol/L (22.0-26.0); BG METHEMOGLOBIN 0.2 % (0.0-1.5); BG PCO2 35.6 mmHg (35.0-45.0); BG PH 7.276 (7.350-7.450); BG PO2 67.8 mmHg (75.0-100.0); BG TOTAL HEMOGLOBIN 10.8 g/dL (12.0-18.0); BG VENT MODE VENT - PRVC
[2021-05-17] MEDS ORDERED: SODIUM POLYSTYRENE SULFONATE 15 G/60 ML BOT PO SCH (15:00)
[2021-05-18] VITALS (77 sets, daily range): BP systolic 98–150; BP diastolic 34–94
[2021-05-18] MEDS: IPRATROPIUM/ALBUTEROL 0.5-3(2.5)MG/3ML NEB HHN SCH ×6 (00:34→20:24)
[2021-05-18] MEDS: SODIUM BICARBONATE 100 MEQ in DEXTROSE 5% WATER 1,000 ML IV SCH ×2 (02:03→21:59)
[2021-05-18] MEDS: PHENYLEPHRINE 100 MG in DEXT 5% WATER 240 ML IV PRN (02:04)
[2021-05-18] MEDS: MEROPENEM 500MG in NORMAL SALINE 50ML IV SCH ×2 (04:23→15:33)
[2021-05-18] MEDS: ACETAMINOPHEN 650MG/20.3ML UDC PO PRN (06:01)
[2021-05-18] MEDS: METOCLOPRAMIDE HCL 10MG/2ML VIAL IV SCH ×3 (06:02→22:34)
[2021-05-18 06:25] LABS: HEMATOCRIT. 31.4 % (36.0-48.0); MEAN CORPUSCULAR VOLUME 81.8 fL (81.0-99.0); MEAN PLATELET VOLUME 9.6 fl (7.4-10.4); PLATELET 321 x1000/uL (130-400); RED BLOOD CELL COUNT 3.85 mill/uL (4.2-5.4); RED CELL DISTRIBUTION WIDTH 15.6 % (11.6-14.6)
[2021-05-18 06:46] LABS: PHOSPHORUS 6.7 mg/dL (2.5-4.9)
[2021-05-18] MEDS: CHOLECALCIFEROL (D3) 1000 UNIT TABLET PO SCH (07:55)
[2021-05-18] MEDS: ASCORBIC ACID 250 MG TABLET PO SCH (07:55)
[2021-05-18] MEDS: FAMOTIDINE 20MG/2ML VIAL IV SCH (07:55)
[2021-05-18] MEDS: ZINC SULFATE 220 MG ( 50 ) CAPSULE PO SCH (07:55)
[2021-05-18] MEDS: DEXAMETHASONE 10 MG/ML VIAL IV SCH (07:55)
[2021-05-18] MEDS: LACTULOSE 20G/30ML UDC PO PRN (07:55)
[2021-05-18] MEDS: ENOXAPARIN 40MG/0.4ML SYR SUBCUT SCH (07:56)
[2021-05-18 08:06] LABS: BG BASE EXCESS -5.6 mmol/L (-2.0-2.0); BG CARBOXYHEMOGLOBIN 0.3 % (0.5-1.5); BG DEOXYHEMOGLOBIN 7.8 % (0.0-5.0); BG FRACTION INSPIRED OXYGEN 100; BG HCO3 ACT 20.6 mmol/L (22.0-26.0); BG METHEMOGLOBIN 0.1 % (0.0-1.5); BG OXYGEN SATURATION 92.2 % (92.0-98.5); BG OXYHEMOGLOBIN 91.8 % (94.0-97.0); BG PCO2 43.2 mmHg (35.0-45.0); BG PH 7.296 (7.350-7.450); BG PO2 69.7 mmHg (75.0-100.0); BG SAMPLE SITE RIGHT RADIAL; BG TOTAL HEMOGLOBIN 10.7 g/dL (12.0-18.0); BG TOTAL RESPIRATORY RATE 42 b/min; BG VENT MODE VENT- PRVC
[2021-05-18] MEDS: CALCIUM ACETATE 667MG CAPSULE PO SCH ×3 (09:05→16:55)
[2021-05-18] MEDS ORDERED: SODIUM POLYSTYRENE SULFONATE 15 G/60 ML BOT PO NR (11:00)
[2021-05-18] MEDS: MIDAZOLAM HCL 100 MG in SODIUM CHLORIDE 0.9% 80 ML IV PRN (11:42)
[2021-05-18] MEDS ORDERED: FUROSEMIDE 20MG/2ML VIAL IVP NR (13:00)
[2021-05-18 15:34] LABS: PLATELET ESTIMATE NORMAL
[2021-05-18 21:57] LABS: BG BASE EXCESS -3.2 mmol/L (-2.0-2.0); BG CARBOXYHEMOGLOBIN 0.1 % (0.5-1.5); BG DEOXYHEMOGLOBIN 14.2 % (0.0-5.0); BG FRACTION INSPIRED OXYGEN 100; BG HCO3 ACT 22.1 mmol/L (22.0-26.0); BG METHEMOGLOBIN 0.3 % (0.0-1.5); BG OXYGEN SATURATION 85.7 % (92.0-98.5); BG OXYHEMOGLOBIN 85.4 % (94.0-97.0); BG PCO2 40.4 mmHg (35.0-45.0); BG PH 7.355 (7.350-7.450); BG PO2 52.7 mmHg (75.0-100.0); BG SAMPLE SITE RIGHT RADIAL; BG VENT MODE PRVC
[2021-05-18] MEDS: FENTANYL CITRATE/PF 2,500 MCG in SODIUM CHLORIDE 0.9% 200 ML IV PRN (21:59)
[2021-05-19] VITALS (73 sets, daily range): BP systolic 76–140; BP diastolic 48–94
[2021-05-19] MEDS: IPRATROPIUM/ALBUTEROL 0.5-3(2.5)MG/3ML NEB HHN SCH ×6 (00:35→20:35)
[2021-05-19] MEDS: MIDAZOLAM HCL 100 MG in SODIUM CHLORIDE 0.9% 80 ML IV PRN ×2 (03:25→13:34)
[2021-05-19] MEDS: MEROPENEM 500MG in NORMAL SALINE 50ML IV SCH ×2 (03:37→16:35)
[2021-05-19] MEDS: PROPOFOL 10MG/ML 100ML 100 ML IV PRN ×3 (05:41→16:42)
[2021-05-19 06:20] LABS: HEMATOCRIT. 31.3 % (36.0-48.0); HEMOGLOBIN. 9.9 g/dL (12.0-16.0); MEAN CORPUSCULAR HEMOGLOBIN 25.6 pg (28.0-32.0); MEAN CORPUSCULAR VOLUME 81.2 fL (81.0-99.0); MEAN PLATELET VOLUME 9.2 fl (7.4-10.4); PLATELET 372 x1000/uL (130-400); RED BLOOD CELL COUNT 3.85 mill/uL (4.2-5.4); RED CELL DISTRIBUTION WIDTH 15.9 % (11.6-14.6)
[2021-05-19 07:05] LABS: PHOSPHORUS 7.7 mg/dL (2.5-4.9)
[2021-05-19] MEDS: METOCLOPRAMIDE HCL 10MG/2ML VIAL IV SCH ×3 (07:11→21:09)
[2021-05-19] MEDS: FENTANYL CITRATE/PF 2,500 MCG in SODIUM CHLORIDE 0.9% 200 ML IV PRN ×2 (07:17→14:48)
[2021-05-19 08:08] LABS: BG BASE EXCESS -2.4 mmol/L (-2.0-2.0); BG CARBOXYHEMOGLOBIN 0.3 % (0.5-1.5); BG DEOXYHEMOGLOBIN 15.7 % (0.0-5.0); BG FRACTION INSPIRED OXYGEN 100; BG HCO3 ACT 23.9 mmol/L (22.0-26.0); BG METHEMOGLOBIN 0.3 % (0.0-1.5); BG OXYGEN SATURATION 84.2 % (92.0-98.5); BG OXYHEMOGLOBIN 83.7 % (94.0-97.0); BG PCO2 47.6 mmHg (35.0-45.0); BG PH 7.318 (7.350-7.450); BG PO2 52.4 mmHg (75.0-100.0); BG SAMPLE SITE RIGHT RADIAL; BG TOTAL HEMOGLOBIN 10.4 g/dL (12.0-18.0); BG TOTAL RESPIRATORY RATE 44 b/min; BG VENT MODE VENT- PRVC
[2021-05-19] MEDS: DEXAMETHASONE 10 MG/ML VIAL IV SCH (09:42)
[2021-05-19] MEDS: FAMOTIDINE 20MG/2ML VIAL IV SCH (09:42)
[2021-05-19] MEDS: ENOXAPARIN 40MG/0.4ML SYR SUBCUT SCH (09:42)
[2021-05-19] MEDS: ASCORBIC ACID 250 MG TABLET PO SCH (09:42)
[2021-05-19] MEDS: ZINC SULFATE 220 MG ( 50 ) CAPSULE PO SCH (09:42)
[2021-05-19] MEDS: CHOLECALCIFEROL (D3) 1000 UNIT TABLET PO SCH (09:42)
[2021-05-19] MEDS: CALCIUM ACETATE 667MG CAPSULE PO SCH ×3 (09:43→16:35)
[2021-05-19] MEDS ORDERED: PROPOFOL 10MG/ML 100ML 100 ML IV PRN (10:46)
[2021-05-19 17:08] LABS: PLATELET ESTIMATE NORMAL
[2021-05-20] VITALS (95 sets, daily range): BP systolic 80–172; BP diastolic 48–109
[2021-05-20] MEDS: FENTANYL CITRATE/PF 2,500 MCG in SODIUM CHLORIDE 0.9% 200 ML IV PRN ×2 (00:16→21:08)
[2021-05-20] MEDS: IPRATROPIUM/ALBUTEROL 0.5-3(2.5)MG/3ML NEB HHN SCH ×6 (00:29→20:17)
[2021-05-20] MEDS: PHENYLEPHRINE 100 MG in DEXT 5% WATER 240 ML IV PRN (00:39)
[2021-05-20] MEDS ORDERED: NOREPINEPHRINE 32 MG in DEXT 5% WATER 218 ML IV PRN (01:00)
[2021-05-20] MEDS: DOPAMINE 400MG/250ML PREMIX 250 ML IV PRN ×4 (02:49→19:30)
[2021-05-20] MEDS: MEROPENEM 500MG in NORMAL SALINE 50ML IV SCH ×2 (04:59→18:01)
[2021-05-20] MEDS: METOCLOPRAMIDE HCL 10MG/2ML VIAL IV SCH ×3 (05:00→23:02)
[2021-05-20 06:16] LABS: HEMATOCRIT. 31.8 % (36.0-48.0); HEMOGLOBIN. 10.2 g/dL (12.0-16.0); MEAN CORPUSCULAR HEMOGLOBIN 25.7 pg (28.0-32.0); MEAN PLATELET VOLUME 9.4 fl (7.4-10.4); PLATELET 415 x1000/uL (130-400); RED BLOOD CELL COUNT 3.98 mill/uL (4.2-5.4); RED CELL DISTRIBUTION WIDTH 15.7 % (11.6-14.6)
[2021-05-20 06:49] LABS: PHOSPHORUS 8.2 mg/dL (2.5-4.9)
[2021-05-20] MEDS: MIDAZOLAM HCL 100 MG in SODIUM CHLORIDE 0.9% 80 ML IV PRN (07:46)
[2021-05-20 08:22] LABS: BG BASE EXCESS -4.9 mmol/L (-2.0-2.0); BG CARBOXYHEMOGLOBIN 0.6 % (0.5-1.5); BG FRACTION INSPIRED OXYGEN 90; BG HCO3 ACT 20.8 mmol/L (22.0-26.0); BG METHEMOGLOBIN 0.2 % (0.0-1.5); BG OXYHEMOGLOBIN 94.2 % (94.0-97.0); BG PCO2 41.1 mmHg (35.0-45.0); BG PH 7.323 (7.350-7.450); BG PO2 80.5 mmHg (75.0-100.0); BG SAMPLE SITE RIGHT RADIAL; BG TOTAL HEMOGLOBIN 11.2 g/dL (12.0-18.0); BG VENT MODE PRVC
[2021-05-20] MEDS ORDERED: SODIUM POLYSTYRENE SULFONATE 15 G/60 ML BOT PO SCH (08:30)
[2021-05-20] MEDS: ENOXAPARIN 40MG/0.4ML SYR SUBCUT SCH (09:36)
[2021-05-20] MEDS: CHOLECALCIFEROL (D3) 1000 UNIT TABLET PO SCH (09:37)
[2021-05-20] MEDS: ZINC SULFATE 220 MG ( 50 ) CAPSULE PO SCH (09:37)
[2021-05-20] MEDS: FAMOTIDINE 20MG/2ML VIAL IV SCH (09:37)
[2021-05-20] MEDS: ASCORBIC ACID 250 MG TABLET PO SCH (09:37)
[2021-05-20] MEDS: CALCIUM ACETATE 667MG CAPSULE PO SCH ×3 (09:37→18:01)
[2021-05-20] MEDS: DEXAMETHASONE 10 MG/ML VIAL IV SCH (09:37)
[2021-05-20] MEDS: DEXTROSE 5% WATER 1,000 ML IV SCH (09:38)
[2021-05-20 16:35] LABS: PLATELET ESTIMATE INCREASED
[2021-05-21] VITALS (100 sets, daily range): BP systolic 83–131; BP diastolic 54–86
[2021-05-21] MEDS: IPRATROPIUM/ALBUTEROL 0.5-3(2.5)MG/3ML NEB HHN SCH ×6 (00:18→20:38)
[2021-05-21] MEDS: DOPAMINE 400MG/250ML PREMIX 250 ML IV PRN (00:51)
[2021-05-21] MEDS: MIDAZOLAM HCL 100 MG in SODIUM CHLORIDE 0.9% 80 ML IV PRN ×3 (00:55→21:23)
[2021-05-21] MEDS: MEROPENEM 500MG in NORMAL SALINE 50ML IV SCH ×2 (04:22→15:37)
[2021-05-21] MEDS: METOCLOPRAMIDE HCL 10MG/2ML VIAL IV SCH ×3 (06:21→22:07)
[2021-05-21 06:43] LABS: HEMATOCRIT. 29.9 % (36.0-48.0); HEMOGLOBIN. 9.5 g/dL (12.0-16.0); MEAN CORPUSCULAR HEMOGLOBIN 25.7 pg (28.0-32.0); MEAN CORPUSCULAR VOLUME 80.4 fL (81.0-99.0); MEAN PLATELET VOLUME 9.3 fl (7.4-10.4); PLATELET 410 x1000/uL (130-400); RED BLOOD CELL COUNT 3.71 mill/uL (4.2-5.4); RED CELL DISTRIBUTION WIDTH 15.4 % (11.6-14.6)
[2021-05-21] MEDS ORDERED: VECURONIUM BROMIDE 10 MG/VIAL IV NR (07:00)
[2021-05-21 08:13] LABS: BG BASE EXCESS -2.4 mmol/L (-2.0-2.0); BG CARBOXYHEMOGLOBIN 0.4 % (0.5-1.5); BG DEOXYHEMOGLOBIN 12.4 % (0.0-5.0); BG FRACTION INSPIRED OXYGEN 100; BG HCO3 ACT 23.6 mmol/L (22.0-26.0); BG METHEMOGLOBIN 0.1 % (0.0-1.5); BG OXYGEN SATURATION 87.5 % (92.0-98.5); BG OXYHEMOGLOBIN 87.1 % (94.0-97.0); BG PCO2 45.4 mmHg (35.0-45.0); BG PH 7.333 (7.350-7.450); BG PO2 58.5 mmHg (75.0-100.0); BG TOTAL HEMOGLOBIN 10.4 g/dL (12.0-18.0); BG VENT MODE PRVC
[2021-05-21] MEDS: FENTANYL CITRATE/PF 2,500 MCG in SODIUM CHLORIDE 0.9% 200 ML IV PRN ×3 (08:23→23:57)
[2021-05-21] MEDS: DEXAMETHASONE 10 MG/ML VIAL IV SCH (08:23)
[2021-05-21] MEDS: FAMOTIDINE 20MG/2ML VIAL IV SCH (08:23)
[2021-05-21] MEDS: CHOLECALCIFEROL (D3) 1000 UNIT TABLET PO SCH (08:23)
[2021-05-21] MEDS: CALCIUM ACETATE 667MG CAPSULE PO SCH ×3 (08:24→17:26)
[2021-05-21] MEDS: ENOXAPARIN 40MG/0.4ML SYR SUBCUT SCH (08:25)
[2021-05-21] MEDS: ZINC SULFATE 220 MG ( 50 ) CAPSULE PO SCH (08:25)
[2021-05-21] MEDS: ASCORBIC ACID 250 MG TABLET PO SCH (08:25)
[2021-05-21] MEDS: DEXTROSE 5% WATER 1,000 ML IV SCH (08:26)
[2021-05-21] MEDS: PHENYLEPHRINE 100 MG in DEXT 5% WATER 240 ML IV PRN (08:29)
[2021-05-21] MEDS ORDERED: SODIUM POLYSTYRENE SULFONATE 15 G/60 ML BOT PO NR (11:00)
[2021-05-21 11:38] LABS: PLATELET ESTIMATE SLIGHTLY INCREASED
[2021-05-21] MEDS ORDERED: ENOXAPARIN 80MG/0.8ML SYR SUBCUT NR (15:30)
[2021-05-21 17:11] LABS: INR 1.1; PROTHROMBIN TIME 11.6 sec (9.6-11.0)
[2021-05-22] VITALS (96 sets, daily range): BP systolic 84–142; BP diastolic 50–87
[2021-05-22] MEDS: IPRATROPIUM/ALBUTEROL 0.5-3(2.5)MG/3ML NEB HHN SCH ×6 (00:26→21:26)
[2021-05-22 05:34] LABS: HEMATOCRIT. 30.3 % (36.0-48.0); HEMOGLOBIN. 9.5 g/dL (12.0-16.0)
[2021-05-22 05:47] LABS: MEAN CORPUSCULAR HEMOGLOBIN 25.5 pg (28.0-32.0); MEAN CORPUSCULAR VOLUME 81.2 fL (81.0-99.0); MEAN PLATELET VOLUME 9.2 fl (7.4-10.4); PLATELET 477 x1000/uL (130-400); RED BLOOD CELL COUNT 3.73 mill/uL (4.2-5.4); RED CELL DISTRIBUTION WIDTH 15.4 % (11.6-14.6)
[2021-05-22] MEDS: METOCLOPRAMIDE HCL 10MG/2ML VIAL IV SCH ×3 (06:54→22:25)
[2021-05-22] MEDS: PHENYLEPHRINE 100 MG in DEXT 5% WATER 240 ML IV PRN (07:33)
[2021-05-22] MEDS: FENTANYL CITRATE/PF 2,500 MCG in SODIUM CHLORIDE 0.9% 200 ML IV PRN ×2 (07:33→16:15)
[2021-05-22 08:34] LABS: BG BASE EXCESS -2.5 mmol/L (-2.0-2.0); BG CARBOXYHEMOGLOBIN 0.1 % (0.5-1.5); BG DEOXYHEMOGLOBIN 1.7 % (0.0-5.0); BG FRACTION INSPIRED OXYGEN 100; BG HCO3 ACT 23.3 mmol/L (22.0-26.0); BG METHEMOGLOBIN 0.4 % (0.0-1.5); BG OXYGEN SATURATION 98.3 % (92.0-98.5); BG OXYHEMOGLOBIN 97.8 % (94.0-97.0); BG PCO2 44.7 mmHg (35.0-45.0); BG PH 7.335 (7.350-7.450); BG PO2 129.1 mmHg (75.0-100.0); BG SAMPLE SITE LEFT BRACHIAL; BG TOTAL HEMOGLOBIN 10.2 g/dL (12.0-18.0); BG TOTAL RESPIRATORY RATE 34 b/min; BG VENT MODE VENT- PRVC
[2021-05-22] MEDS: DEXAMETHASONE 10 MG/ML VIAL IV SCH (09:06)
[2021-05-22] MEDS: CALCIUM ACETATE 667MG CAPSULE PO SCH ×3 (09:06→18:35)
[2021-05-22] MEDS: ASCORBIC ACID 250 MG TABLET PO SCH (09:06)
[2021-05-22] MEDS: DEXTROSE 5% WATER 1,000 ML IV SCH (09:06)
[2021-05-22] MEDS: FAMOTIDINE 20MG/2ML VIAL IV SCH (09:06)
[2021-05-22] MEDS: CHOLECALCIFEROL (D3) 1000 UNIT TABLET PO SCH (09:06)
[2021-05-22] MEDS: ZINC SULFATE 220 MG ( 50 ) CAPSULE PO SCH (09:06)
[2021-05-22] MEDS: ENOXAPARIN 120MG/0.8ML SYR SUBCUT SCH (12:22)
[2021-05-22] MEDS: DOPAMINE 400MG/250ML PREMIX 250 ML IV PRN (13:41)
[2021-05-22 15:09] LABS: NUCLEATED RED BLOOD CELLS 3 /100 WBC
[2021-05-22 15:10] LABS: PLATELET ESTIMATE INCREASED
[2021-05-22] MEDS: MIDAZOLAM HCL 100 MG in SODIUM CHLORIDE 0.9% 80 ML IV PRN (16:15)
[2021-05-23] VITALS (92 sets, daily range): BP systolic 83–126; BP diastolic 50–91
[2021-05-23] MEDS: IPRATROPIUM/ALBUTEROL 0.5-3(2.5)MG/3ML NEB HHN SCH ×6 (00:53→20:18)
[2021-05-23] MEDS: FENTANYL CITRATE/PF 2,500 MCG in SODIUM CHLORIDE 0.9% 200 ML IV PRN ×3 (02:00→19:47)
[2021-05-23] MEDS: PHENYLEPHRINE 100 MG in DEXT 5% WATER 240 ML IV PRN ×2 (05:15→22:45)
[2021-05-23 05:44] LABS: BASOPHILS % 0.4 % (0.0-2.0); EOSINOPHILS % 2.7 % (0.0-5.0); HEMATOCRIT. 31.4 % (36.0-48.0); HEMOGLOBIN. 9.8 g/dL (12.0-16.0); LYMPHOCYTES % 8.5 % (20.0-50.0); MEAN CORPUSCULAR HEMOGLOBIN 25.3 pg (28.0-32.0); MEAN CORPUSCULAR VOLUME 81.3 fL (81.0-99.0); MEAN PLATELET VOLUME 9.1 fl (7.4-10.4); MONOCYTES % 2.9 % (2.0-8.0); NEUTROPHILS % 85.5 % (40.0-76.0); PLATELET 453 x1000/uL (130-400); RED BLOOD CELL COUNT 3.86 mill/uL (4.2-5.4); RED CELL DISTRIBUTION WIDTH 15.4 % (11.6-14.6)
[2021-05-23] MEDS: METOCLOPRAMIDE HCL 10MG/2ML VIAL IV SCH ×3 (06:00→21:43)
[2021-05-23 08:21] LABS: BG BASE EXCESS 2.7 mmol/L (-2.0-2.0); BG CARBOXYHEMOGLOBIN 0.3 % (0.5-1.5); BG DEOXYHEMOGLOBIN 6.3 % (0.0-5.0); BG FRACTION INSPIRED OXYGEN 70; BG HCO3 ACT 28.5 mmol/L (22.0-26.0); BG METHEMOGLOBIN 0.5 % (0.0-1.5); BG OXYGEN SATURATION 93.6 % (92.0-98.5); BG OXYHEMOGLOBIN 92.9 % (94.0-97.0); BG PCO2 49.3 mmHg (35.0-45.0); BG PO2 71.8 mmHg (75.0-100.0); BG SAMPLE SITE RIGHT RADIAL; BG TOTAL RESPIRATORY RATE 34 b/min; BG VENT MODE VENT- PRVC
[2021-05-23] MEDS: FAMOTIDINE 20MG/2ML VIAL IV SCH (08:39)
[2021-05-23] MEDS: CHOLECALCIFEROL (D3) 1000 UNIT TABLET PO SCH (08:40)
[2021-05-23] MEDS: ASCORBIC ACID 250 MG TABLET PO SCH (08:40)
[2021-05-23] MEDS: ZINC SULFATE 220 MG ( 50 ) CAPSULE PO SCH (08:40)
[2021-05-23] MEDS: DEXAMETHASONE 10 MG/ML VIAL IV SCH (08:40)
[2021-05-23] MEDS: DEXTROSE 5% WATER 1,000 ML IV SCH (08:40)
[2021-05-23] MEDS: CALCIUM ACETATE 667MG CAPSULE PO SCH ×3 (08:40→17:25)
[2021-05-23] MEDS: ENOXAPARIN 120MG/0.8ML SYR SUBCUT SCH ×2 (08:42→21:43)
[2021-05-23] MEDS ORDERED: SODIUM POLYSTYRENE SULFONATE 15 G/60 ML BOT PO SCH (08:45)
[2021-05-23] MEDS: MIDAZOLAM HCL 100 MG in SODIUM CHLORIDE 0.9% 80 ML IV PRN (11:15)
[2021-05-23] MEDS: ACETAMINOPHEN 650MG/20.3ML UDC PO PRN (13:44)
[2021-05-24] VITALS (101 sets, daily range): BP systolic 87–181; BP diastolic 44–99
[2021-05-24] MEDS: IPRATROPIUM/ALBUTEROL 0.5-3(2.5)MG/3ML NEB HHN SCH ×6 (00:34→20:42)
[2021-05-24] MEDS: DEXTROSE 5% WATER 1,000 ML IV SCH ×2 (01:32→17:51)
[2021-05-24] MEDS: MIDAZOLAM HCL 100 MG in SODIUM CHLORIDE 0.9% 80 ML IV PRN ×2 (02:19→12:43)
[2021-05-24] MEDS: VECURONIUM BROMIDE 10 MG/VIAL IV PRN (04:57)
[2021-05-24] MEDS: FENTANYL CITRATE/PF 2,500 MCG in SODIUM CHLORIDE 0.9% 200 ML IV PRN ×3 (05:04→21:12)
[2021-05-24] MEDS: METOCLOPRAMIDE HCL 10MG/2ML VIAL IV SCH ×3 (05:40→21:41)
[2021-05-24 05:59] LABS: BASOPHILS % 0.3 % (0.0-2.0); EOSINOPHILS % 2.6 % (0.0-5.0); HEMATOCRIT. 33.9 % (36.0-48.0); HEMOGLOBIN. 10.4 g/dL (12.0-16.0); LYMPHOCYTES % 12.9 % (20.0-50.0); MEAN CORPUSCULAR HEMOGLOBIN 25.2 pg (28.0-32.0); MEAN CORPUSCULAR VOLUME 82.3 fL (81.0-99.0); MEAN PLATELET VOLUME 9.4 fl (7.4-10.4); MONOCYTES % 2.1 % (2.0-8.0); NEUTROPHILS % 82.1 % (40.0-76.0); PLATELET 452 x1000/uL (130-400); RED BLOOD CELL COUNT 4.11 mill/uL (4.2-5.4); RED CELL DISTRIBUTION WIDTH 15.7 % (11.6-14.6)
[2021-05-24 06:36] LABS: PHOSPHORUS 3.5 mg/dL (2.5-4.9)
[2021-05-24] MEDS: ASCORBIC ACID 250 MG TABLET PO SCH (08:20)
[2021-05-24] MEDS: ZINC SULFATE 220 MG ( 50 ) CAPSULE PO SCH (08:20)
[2021-05-24] MEDS: DEXAMETHASONE 10 MG/ML VIAL IV SCH (08:20)
[2021-05-24] MEDS: CALCIUM ACETATE 667MG CAPSULE PO SCH ×3 (08:20→18:09)
[2021-05-24] MEDS: FAMOTIDINE 20MG/2ML VIAL IV SCH (08:20)
[2021-05-24] MEDS: CHOLECALCIFEROL (D3) 1000 UNIT TABLET PO SCH (08:21)
[2021-05-24] MEDS: ENOXAPARIN 120MG/0.8ML SYR SUBCUT SCH ×2 (08:22→21:42)
[2021-05-24 09:47] LABS: BG BASE EXCESS 1.5 mmol/L (-2.0-2.0); BG CARBOXYHEMOGLOBIN 0.8 % (0.5-1.5); BG DEOXYHEMOGLOBIN 1.1 % (0.0-5.0); BG FRACTION INSPIRED OXYGEN 100; BG HCO3 ACT 26.5 mmol/L (22.0-26.0); BG METHEMOGLOBIN 0.5 % (0.0-1.5); BG OXYGEN SATURATION 98.9 % (92.0-98.5); BG OXYHEMOGLOBIN 97.6 % (94.0-97.0); BG PCO2 43.5 mmHg (35.0-45.0); BG PH 7.403 (7.350-7.450); BG PO2 148.8 mmHg (75.0-100.0); BG SAMPLE SITE ALINE; BG TOTAL RESPIRATORY RATE 34 b/min; BG VENT MODE PRVC
[2021-05-24] MEDS ORDERED: ENOXAPARIN 120MG/0.8ML SYR SUBCUT SCH (15:20)
[2021-05-25] VITALS (96 sets, daily range): BP systolic 89–178; BP diastolic 36–93
[2021-05-25] MEDS: IPRATROPIUM/ALBUTEROL 0.5-3(2.5)MG/3ML NEB HHN SCH ×6 (00:27→20:13)
[2021-05-25] MEDS: MIDAZOLAM HCL 100 MG in SODIUM CHLORIDE 0.9% 80 ML IV PRN ×3 (02:47→21:20)
[2021-05-25] MEDS: FENTANYL CITRATE/PF 2,500 MCG in SODIUM CHLORIDE 0.9% 200 ML IV PRN ×3 (05:17→21:15)
[2021-05-25] MEDS: VECURONIUM BROMIDE 10 MG/VIAL IV PRN (05:48)
[2021-05-25] MEDS: METOCLOPRAMIDE HCL 10MG/2ML VIAL IV SCH ×2 (06:06→20:26)
[2021-05-25 06:28] LABS: BASOPHILS % 0.6 % (0.0-2.0); EOSINOPHILS % 2.5 % (0.0-5.0); HEMATOCRIT. 29.4 % (36.0-48.0); HEMOGLOBIN. 9.2 g/dL (12.0-16.0); LYMPHOCYTES % 12.7 % (20.0-50.0); MEAN CORPUSCULAR HEMOGLOBIN 25.6 pg (28.0-32.0); MEAN CORPUSCULAR VOLUME 81.5 fL (81.0-99.0); MEAN PLATELET VOLUME 9.9 fl (7.4-10.4); MONOCYTES % 1.8 % (2.0-8.0); NEUTROPHILS % 82.4 % (40.0-76.0); PLATELET 356 x1000/uL (130-400); RED BLOOD CELL COUNT 3.61 mill/uL (4.2-5.4); RED CELL DISTRIBUTION WIDTH 15.6 % (11.6-14.6)
[2021-05-25] MEDS: ZINC SULFATE 220 MG ( 50 ) CAPSULE PO SCH (09:48)
[2021-05-25] MEDS: ASCORBIC ACID 250 MG TABLET PO SCH (09:48)
[2021-05-25] MEDS: ENOXAPARIN 120MG/0.8ML SYR SUBCUT SCH ×2 (09:48→20:47)
[2021-05-25] MEDS: DEXAMETHASONE 10 MG/ML VIAL IV SCH (09:48)
[2021-05-25] MEDS: CHOLECALCIFEROL (D3) 1000 UNIT TABLET PO SCH (09:48)
[2021-05-25] MEDS: FAMOTIDINE 20MG/2ML VIAL IV SCH (09:48)
[2021-05-25] MEDS: CALCIUM ACETATE 667MG CAPSULE PO SCH ×3 (09:48→17:44)
[2021-05-25] MEDS: DEXTROSE 5% WATER 1,000 ML IV SCH (09:49)
[2021-05-25 12:24] LABS: BG BASE EXCESS 4.1 mmol/L (-2.0-2.0); BG CARBOXYHEMOGLOBIN 0.3 % (0.5-1.5); BG DEOXYHEMOGLOBIN 2.3 % (0.0-5.0); BG FRACTION INSPIRED OXYGEN 90; BG HCO3 ACT 28.1 mmol/L (22.0-26.0); BG OXYGEN SATURATION 97.7 % (92.0-98.5); BG OXYHEMOGLOBIN 97.4 % (94.0-97.0); BG PH 7.465 (7.350-7.450); BG PO2 112.6 mmHg (75.0-100.0); BG SAMPLE SITE RIGHT RADIAL; BG VENT MODE VENT - AC/PRVC
[2021-05-25] MEDS ORDERED: METOCLOPRAMIDE HCL 10MG/2ML VIAL IV NR (13:00)
[2021-05-26] VITALS (88 sets, daily range): BP systolic 105–168; BP diastolic 44–113
[2021-05-26] MEDS: IPRATROPIUM/ALBUTEROL 0.5-3(2.5)MG/3ML NEB HHN SCH ×6 (00:30→20:34)
[2021-05-26] MEDS: DEXTROSE 5% WATER 1,000 ML IV SCH (04:38)
[2021-05-26] MEDS: METOCLOPRAMIDE HCL 10MG/2ML VIAL IV SCH ×3 (04:38→20:05)
[2021-05-26] MEDS: FENTANYL CITRATE/PF 2,500 MCG in SODIUM CHLORIDE 0.9% 200 ML IV PRN ×3 (04:39→19:34)
[2021-05-26 05:59] LABS: BASOPHILS % 0.5 % (0.0-2.0); EOSINOPHILS % 2.5 % (0.0-5.0); HEMATOCRIT. 29.8 % (36.0-48.0); HEMOGLOBIN. 9.3 g/dL (12.0-16.0); LYMPHOCYTES % 9.6 % (20.0-50.0); MEAN CORPUSCULAR HEMOGLOBIN 25.7 pg (28.0-32.0); MEAN CORPUSCULAR VOLUME 82.1 fL (81.0-99.0); MONOCYTES % 2.2 % (2.0-8.0); NEUTROPHILS % 85.2 % (40.0-76.0); PLATELET 337 x1000/uL (130-400); RED BLOOD CELL COUNT 3.63 mill/uL (4.2-5.4); RED CELL DISTRIBUTION WIDTH 15.5 % (11.6-14.6)
[2021-05-26 06:11] LABS: CHLORIDE 114 mEq/L (98-107)
[2021-05-26] MEDS: MIDAZOLAM HCL 100 MG in SODIUM CHLORIDE 0.9% 80 ML IV PRN ×2 (08:05→15:18)
[2021-05-26 08:46] LABS: BG BASE EXCESS 0.8 mmol/L (-2.0-2.0); BG CARBOXYHEMOGLOBIN 0.4 % (0.5-1.5); BG DEOXYHEMOGLOBIN 8.7 % (0.0-5.0); BG HCO3 ACT 26.5 mmol/L (22.0-26.0); BG METHEMOGLOBIN 0.1 % (0.0-1.5); BG OXYGEN SATURATION 91.3 % (92.0-98.5); BG OXYHEMOGLOBIN 90.8 % (94.0-97.0); BG PCO2 47.3 mmHg (35.0-45.0); BG PH 7.366 (7.350-7.450); BG PO2 65.3 mmHg (75.0-100.0); BG TOTAL HEMOGLOBIN 10.2 g/dL (12.0-18.0)
[2021-05-26] MEDS: FAMOTIDINE 20MG/2ML VIAL IV SCH (09:36)
[2021-05-26] MEDS: GUAIFENESIN-DM 200MG-20MG/10ML UDC PO PRN (09:37)
[2021-05-26] MEDS: CALCIUM ACETATE 667MG CAPSULE PO SCH ×3 (09:37→18:02)
[2021-05-26] MEDS: DEXAMETHASONE 10 MG/ML VIAL IV SCH (09:37)
[2021-05-26] MEDS: ZINC SULFATE 220 MG ( 50 ) CAPSULE PO SCH (09:37)
[2021-05-26] MEDS: ASCORBIC ACID 250 MG TABLET PO SCH (09:37)
[2021-05-26] MEDS: CHOLECALCIFEROL (D3) 1000 UNIT TABLET PO SCH (09:37)
[2021-05-26 09:46] LABS: BG SAMPLE SITE LEFT RADIAL
[2021-05-26 09:47] LABS: BG FRACTION INSPIRED OXYGEN 80; BG PEEP (cmH2O) 8 cmH2O; BG VENT MODE PRVC; BG VENT RATE 34 set
[2021-05-26] MEDS: ENOXAPARIN 120MG/0.8ML SYR SUBCUT SCH ×2 (10:00→20:05)
[2021-05-26] MEDS ORDERED: FUROSEMIDE 20MG/2ML VIAL IVP SCH (10:00)
[2021-05-26] MEDS ORDERED: ENOXAPARIN 120MG/0.8ML SYR SUBCUT SCH (15:15)
[2021-05-27] VITALS (81 sets, daily range): BP systolic 74–163; BP diastolic 41–84
[2021-05-27] MEDS: IPRATROPIUM/ALBUTEROL 0.5-3(2.5)MG/3ML NEB HHN SCH ×6 (00:39→21:20)
[2021-05-27] MEDS: MIDAZOLAM HCL 100 MG in SODIUM CHLORIDE 0.9% 80 ML IV PRN ×3 (02:30→17:28)
[2021-05-27] MEDS: FENTANYL CITRATE/PF 2,500 MCG in SODIUM CHLORIDE 0.9% 200 ML IV PRN ×3 (02:30→17:32)
[2021-05-27] MEDS: METOCLOPRAMIDE HCL 10MG/2ML VIAL IV SCH ×3 (04:43→22:05)
[2021-05-27 05:27] LABS: HEMATOCRIT. 27.7 % (36.0-48.0); HEMOGLOBIN. 8.7 g/dL (12.0-16.0); MEAN CORPUSCULAR HEMOGLOBIN 25.6 pg (28.0-32.0); MEAN CORPUSCULAR VOLUME 81.7 fL (81.0-99.0); MEAN PLATELET VOLUME 10.6 fl (7.4-10.4); PLATELET 284 x1000/uL (130-400); RED BLOOD CELL COUNT 3.39 mill/uL (4.2-5.4); RED CELL DISTRIBUTION WIDTH 15.5 % (11.6-14.6)
[2021-05-27 05:41] LABS: CHLORIDE 114 mEq/L (98-107)
[2021-05-27] MEDS: GUAIFENESIN-DM 200MG-20MG/10ML UDC PO PRN (06:45)
[2021-05-27] MEDS ORDERED: CLONIDINE 0.1MG TABLET PO PRN (07:00)
[2021-05-27] MEDS: VECURONIUM BROMIDE 10 MG/VIAL IV PRN (07:45)
[2021-05-27 07:59] LABS: PLATELET ESTIMATE NORMAL
[2021-05-27] MEDS: ASCORBIC ACID 250 MG TABLET PO SCH (08:33)
[2021-05-27] MEDS: CALCIUM ACETATE 667MG CAPSULE PO SCH ×3 (08:33→18:53)
[2021-05-27] MEDS: CHOLECALCIFEROL (D3) 1000 UNIT TABLET PO SCH (08:33)
[2021-05-27] MEDS: DEXAMETHASONE 10 MG/ML VIAL IV SCH (08:33)
[2021-05-27] MEDS: FAMOTIDINE 20MG/2ML VIAL IV SCH (08:34)
[2021-05-27] MEDS: ENOXAPARIN 120MG/0.8ML SYR SUBCUT SCH ×2 (08:55→22:06)
[2021-05-27 09:45] LABS: BG CARBOXYHEMOGLOBIN 0.2 % (0.5-1.5); BG DEOXYHEMOGLOBIN 15.2 % (0.0-5.0); BG FRACTION INSPIRED OXYGEN 100; BG HCO3 ACT 26.6 mmol/L (22.0-26.0); BG METHEMOGLOBIN 0.1 % (0.0-1.5); BG OXYGEN SATURATION 84.8 % (92.0-98.5); BG OXYHEMOGLOBIN 84.5 % (94.0-97.0); BG PH 7.326 (7.350-7.450); BG PO2 52.2 mmHg (75.0-100.0); BG SAMPLE SITE RIGHT RADIAL; BG TOTAL HEMOGLOBIN 10.7 g/dL (12.0-18.0); BG VENT MODE VENT - PRVC
[2021-05-27] MEDS: ZINC SULFATE 220 MG ( 50 ) CAPSULE PO SCH (10:18)
[2021-05-27] MEDS ORDERED: LIDOCAINE HCL 1% 20ML VIAL (Pyxis) INJ ONE (14:01)
[2021-05-27] MEDS ORDERED: FUROSEMIDE 40MG/4ML VIAL IVP ONE (14:45)
[2021-05-28] VITALS (85 sets, daily range): BP systolic 91–134; BP diastolic 50–83
[2021-05-28] MEDS: IPRATROPIUM/ALBUTEROL 0.5-3(2.5)MG/3ML NEB HHN SCH ×6 (01:28→20:37)
[2021-05-28] MEDS: FENTANYL CITRATE/PF 2,500 MCG in SODIUM CHLORIDE 0.9% 200 ML IV PRN ×3 (02:56→22:47)
[2021-05-28] MEDS: METOCLOPRAMIDE HCL 10MG/2ML VIAL IV SCH ×3 (04:59→21:19)
[2021-05-28 07:23] LABS: BASOPHILS % 0.3 % (0.0-2.0); EOSINOPHILS % 2.2 % (0.0-5.0); HEMATOCRIT. 26.9 % (36.0-48.0); HEMOGLOBIN. 8.2 g/dL (12.0-16.0); LYMPHOCYTES % 7.1 % (20.0-50.0); MEAN CORPUSCULAR HEMOGLOBIN 25.6 pg (28.0-32.0); MEAN CORPUSCULAR VOLUME 83.5 fL (81.0-99.0); MEAN PLATELET VOLUME 10.6 fl (7.4-10.4); NEUTROPHILS % 88.4 % (40.0-76.0); PLATELET 236 x1000/uL (130-400); RED BLOOD CELL COUNT 3.21 mill/uL (4.2-5.4); RED CELL DISTRIBUTION WIDTH 16.1 % (11.6-14.6)
[2021-05-28] MEDS: MIDAZOLAM HCL 100 MG in SODIUM CHLORIDE 0.9% 80 ML IV PRN ×2 (07:31→19:31)
[2021-05-28 07:32] LABS: CHLORIDE 112 mEq/L (98-107)
[2021-05-28 09:03] LABS: BG BASE EXCESS 0.1 mmol/L (-2.0-2.0); BG CARBOXYHEMOGLOBIN 0.7 % (0.5-1.5); BG DEOXYHEMOGLOBIN 0.7 % (0.0-5.0); BG FRACTION INSPIRED OXYGEN 100; BG HCO3 ACT 26.5 mmol/L (22.0-26.0); BG METHEMOGLOBIN 0.6 % (0.0-1.5); BG OXYGEN SATURATION 99.3 % (92.0-98.5); BG PCO2 52.6 mmHg (35.0-45.0); BG PO2 181.2 mmHg (75.0-100.0); BG SAMPLE SITE LEFT RADIAL; BG TOTAL HEMOGLOBIN 8.9 g/dL (12.0-18.0); BG VENT MODE VENT - PRVC
[2021-05-28] MEDS: ASCORBIC ACID 250 MG TABLET PO SCH (09:19)
[2021-05-28] MEDS: DEXAMETHASONE 10 MG/ML VIAL IV SCH (09:19)
[2021-05-28] MEDS: CHOLECALCIFEROL (D3) 1000 UNIT TABLET PO SCH (09:19)
[2021-05-28] MEDS: ZINC SULFATE 220 MG ( 50 ) CAPSULE PO SCH (09:19)
[2021-05-28] MEDS: FAMOTIDINE 20MG/2ML VIAL IV SCH (09:19)
[2021-05-28] MEDS: CALCIUM ACETATE 667MG CAPSULE PO SCH ×3 (09:20→18:50)
[2021-05-28] MEDS: ENOXAPARIN 120MG/0.8ML SYR SUBCUT SCH ×2 (09:20→21:19)
[2021-05-29] VITALS (49 sets, daily range): BP systolic 106–166; BP diastolic 52–96
[2021-05-29] MEDS: IPRATROPIUM/ALBUTEROL 0.5-3(2.5)MG/3ML NEB HHN SCH ×2 (00:23→04:38)
[2021-05-29] MEDS: VECURONIUM BROMIDE 10 MG/VIAL IV PRN (02:10)
[2021-05-29] MEDS: METOCLOPRAMIDE HCL 10MG/2ML VIAL IV SCH ×3 (04:00→21:10)
[2021-05-29] MEDS ORDERED: VECURONIUM BROMIDE 10 MG/VIAL IV SCH (04:45)
[2021-05-29] MEDS: PROPOFOL 10MG/ML 100ML 100 ML IV PRN (04:51)
[2021-05-29] MEDS: FENTANYL CITRATE/PF 2,500 MCG in SODIUM CHLORIDE 0.9% 200 ML IV PRN ×2 (06:25→14:36)
[2021-05-29] MEDS: MIDAZOLAM HCL 100 MG in SODIUM CHLORIDE 0.9% 80 ML IV PRN ×2 (06:25→19:56)
[2021-05-29 06:38] LABS: CHLORIDE 116 mEq/L (98-107); HEMATOCRIT. 29.5 % (36.0-48.0); MEAN CORPUSCULAR HEMOGLOBIN 25.3 pg (28.0-32.0); MEAN CORPUSCULAR VOLUME 82.6 fL (81.0-99.0); MEAN PLATELET VOLUME 10.8 fl (7.4-10.4); PLATELET 288 x1000/uL (130-400); RED BLOOD CELL COUNT 3.57 mill/uL (4.2-5.4); RED CELL DISTRIBUTION WIDTH 15.6 % (11.6-14.6)
[2021-05-29] MEDS ORDERED: FUROSEMIDE 40MG/4ML VIAL IVP SCH (07:00)
[2021-05-29] MEDS: ZINC SULFATE 220 MG ( 50 ) CAPSULE PO SCH (08:49)
[2021-05-29] MEDS: DEXAMETHASONE 10 MG/ML VIAL IV SCH (08:49)
[2021-05-29] MEDS: CHOLECALCIFEROL (D3) 1000 UNIT TABLET PO SCH (08:49)
[2021-05-29] MEDS: ASCORBIC ACID 250 MG TABLET PO SCH (08:49)
[2021-05-29] MEDS: CALCIUM ACETATE 667MG CAPSULE PO SCH ×3 (08:49→17:22)
[2021-05-29] MEDS: FAMOTIDINE 20MG/2ML VIAL IV SCH (08:49)
[2021-05-29] MEDS: ENOXAPARIN 120MG/0.8ML SYR SUBCUT SCH (09:00)
[2021-05-29] MEDS: ALBUTEROL (0.083%) 2.5MG/3ML NEB HHN SCH ×5 (09:05→23:15)
[2021-05-29] MEDS ORDERED: BUDESONIDE 0.5MG/2ML NEB ONE (09:17)
[2021-05-29 09:22] LABS: BG BASE EXCESS 3.6 mmol/L (-2.0-2.0); BG CARBOXYHEMOGLOBIN 0.3 % (0.5-1.5); BG DEOXYHEMOGLOBIN 1.6 % (0.0-5.0); BG FRACTION INSPIRED OXYGEN 90; BG HCO3 ACT 29.3 mmol/L (22.0-26.0); BG METHEMOGLOBIN 0.2 % (0.0-1.5); BG OXYGEN SATURATION 98.4 % (92.0-98.5); BG OXYHEMOGLOBIN 97.9 % (94.0-97.0); BG PCO2 50.3 mmHg (35.0-45.0); BG PH 7.383 (7.350-7.450); BG SAMPLE SITE RIGHT RADIAL; BG TOTAL HEMOGLOBIN 9.5 g/dL (12.0-18.0); BG VENT MODE PRVC
[2021-05-29 10:52] LABS: PLATELET ESTIMATE NORMAL
[2021-05-29] MEDS: DEXTROSE 5% WATER 1,000 ML IV SCH (12:13)
[2021-05-29] MEDS: METOLAZONE 2.5MG TABLET NG SCH ×2 (12:13→17:15)
[2021-05-30] VITALS (47 sets, daily range): BP systolic 88–150; BP diastolic 58–93
[2021-05-30] MEDS: FENTANYL CITRATE/PF 2,500 MCG in SODIUM CHLORIDE 0.9% 200 ML IV PRN ×3 (00:26→21:04)
[2021-05-30] MEDS: GUAIFENESIN-DM 200MG-20MG/10ML UDC PO PRN (00:37)
[2021-05-30] MEDS: ALBUTEROL (0.083%) 2.5MG/3ML NEB HHN SCH ×4 (03:22→20:01)
[2021-05-30] MEDS: PROPOFOL 10MG/ML 100ML 100 ML IV PRN ×4 (04:56→20:31)
[2021-05-30] MEDS: METOCLOPRAMIDE HCL 10MG/2ML VIAL IV SCH ×3 (05:22→20:32)
[2021-05-30 05:45] LABS: HEMATOCRIT. 29.4 % (36.0-48.0); MEAN CORPUSCULAR HEMOGLOBIN 25.1 pg (28.0-32.0); MEAN CORPUSCULAR VOLUME 82.4 fL (81.0-99.0); MEAN PLATELET VOLUME 11.1 fl (7.4-10.4); PLATELET 299 x1000/uL (130-400); RED BLOOD CELL COUNT 3.57 mill/uL (4.2-5.4); RED CELL DISTRIBUTION WIDTH 15.6 % (11.6-14.6)
[2021-05-30 05:55] LABS: CHLORIDE 112 mEq/L (98-107)
[2021-05-30] MEDS: MIDAZOLAM HCL 100 MG in SODIUM CHLORIDE 0.9% 80 ML IV PRN ×2 (06:25→16:20)
[2021-05-30 08:08] LABS: BG CARBOXYHEMOGLOBIN 0.3 % (0.5-1.5); BG DEOXYHEMOGLOBIN 3.1 % (0.0-5.0); BG FRACTION INSPIRED OXYGEN 80; BG HCO3 ACT 29.9 mmol/L (22.0-26.0); BG METHEMOGLOBIN 0.7 % (0.0-1.5); BG OXYGEN SATURATION 96.9 % (92.0-98.5); BG OXYHEMOGLOBIN 95.9 % (94.0-97.0); BG PCO2 46.1 mmHg (35.0-45.0); BG PO2 92.6 mmHg (75.0-100.0); BG SAMPLE SITE LEFT RADIAL; BG TOTAL HEMOGLOBIN 9.1 g/dL (12.0-18.0); BG VENT MODE PRVC
[2021-05-30] MEDS ORDERED: POTASSIUM CHLORIDE 10MEQ TABLET SR PO NR (08:45)
[2021-05-30] MEDS: CHOLECALCIFEROL (D3) 1000 UNIT TABLET PO SCH (09:39)
[2021-05-30] MEDS: METOLAZONE 2.5MG TABLET NG SCH ×2 (09:39→16:58)
[2021-05-30] MEDS: ASCORBIC ACID 250 MG TABLET PO SCH (09:39)
[2021-05-30] MEDS: ZINC SULFATE 220 MG ( 50 ) CAPSULE PO SCH (09:39)
[2021-05-30] MEDS: DEXAMETHASONE 10 MG/ML VIAL IV SCH (09:40)
[2021-05-30] MEDS: CALCIUM ACETATE 667MG CAPSULE PO SCH ×3 (09:40→19:02)
[2021-05-30] MEDS: FAMOTIDINE 20MG/2ML VIAL IV SCH (09:40)
[2021-05-30 10:51] LABS: PLATELET ESTIMATE NORMAL
[2021-05-30] MEDS: DEXTROSE 5% WATER 1,000 ML IV SCH (16:19)
[2021-05-30] MEDS: ACETAMINOPHEN 650MG/20.3ML UDC PO PRN (16:58)
[2021-05-30] MEDS ORDERED: PROPOFOL 10MG/ML 100ML 100 ML IV PRN (19:30)
[2021-05-31] VITALS (48 sets, daily range): BP systolic 105–131; BP diastolic 56–72
[2021-05-31] MEDS: ALBUTEROL (0.083%) 2.5MG/3ML NEB HHN SCH ×6 (00:04→20:35)
[2021-05-31] MEDS: MIDAZOLAM HCL 100 MG in SODIUM CHLORIDE 0.9% 80 ML IV PRN ×3 (01:31→23:52)
[2021-05-31] MEDS: METOCLOPRAMIDE HCL 10MG/2ML VIAL IV SCH ×3 (05:39→20:13)
[2021-05-31 05:43] LABS: BASOPHILS % 0.2 % (0.0-2.0); EOSINOPHILS % 5.5 % (0.0-5.0); HEMATOCRIT. 26.4 % (36.0-48.0); HEMOGLOBIN. 8.3 g/dL (12.0-16.0); LYMPHOCYTES % 9.7 % (20.0-50.0); MEAN CORPUSCULAR HEMOGLOBIN 25.9 pg (28.0-32.0); MEAN CORPUSCULAR VOLUME 82.1 fL (81.0-99.0); MEAN PLATELET VOLUME 11.2 fl (7.4-10.4); MONOCYTES % 2.6 % (2.0-8.0); PLATELET 241 x1000/uL (130-400); RED BLOOD CELL COUNT 3.21 mill/uL (4.2-5.4); RED CELL DISTRIBUTION WIDTH 15.8 % (11.6-14.6)
[2021-05-31 06:09] LABS: CHLORIDE 111 mEq/L (98-107)
[2021-05-31] MEDS: FENTANYL CITRATE/PF 2,500 MCG in SODIUM CHLORIDE 0.9% 200 ML IV PRN ×2 (07:37→17:49)
[2021-05-31] MEDS: CALCIUM ACETATE 667MG CAPSULE PO SCH ×3 (09:01→17:56)
[2021-05-31] MEDS: METOLAZONE 2.5MG TABLET NG SCH ×2 (09:01→17:56)
[2021-05-31] MEDS: DEXAMETHASONE 10 MG/ML VIAL IV SCH (09:01)
[2021-05-31] MEDS: METHYLPREDNISOLONE SOD SUCC 40 MG/ML VIAL IV SCH ×2 (12:03→17:56)
[2021-05-31] MEDS: PROPOFOL 10MG/ML 100ML 100 ML IV PRN (19:13)
[2021-06-01] VITALS (48 sets, daily range): BP systolic 108–136; BP diastolic 57–88
[2021-06-01] MEDS: ALBUTEROL (0.083%) 2.5MG/3ML NEB HHN SCH ×6 (00:24→20:39)
[2021-06-01] MEDS: METOCLOPRAMIDE HCL 10MG/2ML VIAL IV SCH ×3 (03:09→19:26)
[2021-06-01] MEDS: METHYLPREDNISOLONE SOD SUCC 40 MG/ML VIAL IV SCH ×3 (03:09→17:42)
[2021-06-01] MEDS: FENTANYL CITRATE/PF 2,500 MCG in SODIUM CHLORIDE 0.9% 200 ML IV PRN ×3 (04:07→23:35)
[2021-06-01 06:22] LABS: HEMATOCRIT. 27.5 % (36.0-48.0); HEMOGLOBIN. 8.6 g/dL (12.0-16.0); MEAN CORPUSCULAR HEMOGLOBIN 25.6 pg (28.0-32.0); MEAN CORPUSCULAR VOLUME 82.1 fL (81.0-99.0); RED BLOOD CELL COUNT 3.35 mill/uL (4.2-5.4)
[2021-06-01] MEDS: CALCIUM ACETATE 667MG CAPSULE PO SCH ×3 (08:13→17:42)
[2021-06-01] MEDS: METOLAZONE 2.5MG TABLET NG SCH ×2 (08:13→17:42)
[2021-06-01] MEDS: PROPOFOL 10MG/ML 100ML 100 ML IV PRN ×2 (08:14→19:25)
[2021-06-01 08:24] LABS: CHLORIDE 109 mEq/L (98-107)
[2021-06-01 08:36] LABS: BG BASE EXCESS 4.6 mmol/L (-2.0-2.0); BG CARBOXYHEMOGLOBIN 0.3 % (0.5-1.5); BG DEOXYHEMOGLOBIN 2.2 % (0.0-5.0); BG FRACTION INSPIRED OXYGEN 80; BG HCO3 ACT 29.6 mmol/L (22.0-26.0); BG METHEMOGLOBIN 0.5 % (0.0-1.5); BG OXYGEN SATURATION 97.8 % (92.0-98.5); BG PCO2 46.5 mmHg (35.0-45.0); BG PH 7.421 (7.350-7.450); BG PO2 100.9 mmHg (75.0-100.0); BG SAMPLE SITE LEFT RADIAL; BG TOTAL HEMOGLOBIN 8.4 g/dL (12.0-18.0); BG VENT MODE VENT - AC
[2021-06-01 09:03] LABS: PLATELET 221 x1000/uL (130-400)
[2021-06-01 09:11] LABS: PLATELET ESTIMATE NORMAL
[2021-06-01] MEDS: MIDAZOLAM HCL 100 MG in SODIUM CHLORIDE 0.9% 80 ML IV PRN ×2 (10:21→21:06)
[2021-06-01] MEDS ORDERED: PROPOFOL 10MG/ML 100ML 100 ML IV PRN (12:15)
[2021-06-01] MEDS ORDERED: FUROSEMIDE 40MG/4ML VIAL IV NR (12:30)
[2021-06-02] VITALS (48 sets, daily range): BP systolic 82–156; BP diastolic 52–94
[2021-06-02] MEDS: ALBUTEROL (0.083%) 2.5MG/3ML NEB HHN SCH ×6 (00:49→20:10)
[2021-06-02] MEDS: MIDAZOLAM HCL 100 MG in SODIUM CHLORIDE 0.9% 80 ML IV PRN ×3 (03:58→22:09)
[2021-06-02] MEDS: METHYLPREDNISOLONE SOD SUCC 40 MG/ML VIAL IV SCH ×3 (04:07→18:05)
[2021-06-02] MEDS: METOCLOPRAMIDE HCL 10MG/2ML VIAL IV SCH ×3 (04:08→19:42)
[2021-06-02 05:57] LABS: BASOPHILS % 0.2 % (0.0-2.0); EOSINOPHILS % 0.2 % (0.0-5.0); HEMATOCRIT. 28.6 % (36.0-48.0); HEMOGLOBIN. 8.9 g/dL (12.0-16.0); LYMPHOCYTES % 7.4 % (20.0-50.0); MEAN CORPUSCULAR HEMOGLOBIN 25.4 pg (28.0-32.0); MEAN PLATELET VOLUME 11.4 fl (7.4-10.4); MONOCYTES % 4.9 % (2.0-8.0); NEUTROPHILS % 87.3 % (40.0-76.0); PLATELET 235 x1000/uL (130-400); RED BLOOD CELL COUNT 3.49 mill/uL (4.2-5.4); RED CELL DISTRIBUTION WIDTH 15.4 % (11.6-14.6)
[2021-06-02 06:16] LABS: CHLORIDE 109 mEq/L (98-107)
[2021-06-02 06:34] LABS: PHOSPHORUS 3.6 mg/dL (2.5-4.9)
[2021-06-02] MEDS: CALCIUM ACETATE 667MG CAPSULE PO SCH ×3 (08:20→18:05)
[2021-06-02] MEDS: METOLAZONE 2.5MG TABLET NG SCH ×3 (08:46→16:17)
[2021-06-02 09:18] LABS: BG BASE EXCESS 2.9 mmol/L (-2.0-2.0); BG CARBOXYHEMOGLOBIN 0.1 % (0.5-1.5); BG DEOXYHEMOGLOBIN 2.9 % (0.0-5.0); BG FRACTION INSPIRED OXYGEN 65; BG HCO3 ACT 26.9 mmol/L (22.0-26.0); BG METHEMOGLOBIN 0.3 % (0.0-1.5); BG OXYGEN SATURATION 97.1 % (92.0-98.5); BG OXYHEMOGLOBIN 96.7 % (94.0-97.0); BG PCO2 38.8 mmHg (35.0-45.0); BG PH 7.459 (7.350-7.450); BG PO2 92.4 mmHg (75.0-100.0); BG SAMPLE SITE LEFT RADIAL; BG TOTAL HEMOGLOBIN 9.4 g/dL (12.0-18.0); BG VENT MODE VENT - PRVC
[2021-06-02] MEDS: FENTANYL CITRATE/PF 2,500 MCG in SODIUM CHLORIDE 0.9% 200 ML IV PRN ×2 (10:13→22:10)
[2021-06-02] MEDS ORDERED: LIDOCAINE HCL/EPINEPHRINE 1%-EPI 1:100,000 20 ML VIAL ONE (11:36)
[2021-06-02] MEDS ORDERED: ONDANSETRON HCL 4MG/2ML INJ ONE (14:20)
[2021-06-02] MEDS ORDERED: FENTANYL CITRATE/PF 50MCG/ML 2ML VIAL ONE (14:20)
[2021-06-02] MEDS ORDERED: METOCLOPRAMIDE HCL 10MG/2ML VIAL ONE (14:20)
[2021-06-02] MEDS ORDERED: VECURONIUM BROMIDE 10 MG/VIAL IV ONE (14:38)
[2021-06-02] MEDS ORDERED: SODIUM CHLORIDE 0.9% 10ML VIAL ONE (14:38)
[2021-06-02] MEDS ORDERED: PROPOFOL 200MG/20ML VIAL IV ONE (14:45)
[2021-06-02] MEDS ORDERED: GLYCOPYRROLATE 0.2 MG/ML 2ML VIAL ONE (14:58)
[2021-06-02] MEDS ORDERED: NEOSTIGMINE METHYLSULFATE 1MG/ML 10 ML VIAL ONE (14:59)
[2021-06-02] MEDS: PROPOFOL 10MG/ML 100ML 100 ML IV PRN (15:43)
[2021-06-03] VITALS (50 sets, daily range): BP systolic 117–165; BP diastolic 65–102
[2021-06-03] MEDS: ALBUTEROL (0.083%) 2.5MG/3ML NEB HHN SCH ×6 (00:22→20:10)
[2021-06-03] MEDS: PROPOFOL 10MG/ML 100ML 100 ML IV PRN ×2 (00:59→06:32)
[2021-06-03] MEDS: METHYLPREDNISOLONE SOD SUCC 40 MG/ML VIAL IV SCH ×3 (03:17→17:40)
[2021-06-03] MEDS: METOCLOPRAMIDE HCL 10MG/2ML VIAL IV SCH ×3 (03:18→19:53)
[2021-06-03 07:37] LABS: HEMATOCRIT. 27.6 % (36.0-48.0); HEMOGLOBIN. 8.6 g/dL (12.0-16.0); MEAN CORPUSCULAR HEMOGLOBIN 25.6 pg (28.0-32.0); MEAN CORPUSCULAR VOLUME 81.7 fL (81.0-99.0); MEAN PLATELET VOLUME 11.3 fl (7.4-10.4); PLATELET 250 x1000/uL (130-400); RED BLOOD CELL COUNT 3.37 mill/uL (4.2-5.4); RED CELL DISTRIBUTION WIDTH 15.6 % (11.6-14.6)
[2021-06-03 07:40] LABS: CHLORIDE 107 mEq/L (98-107)
[2021-06-03] MEDS: CALCIUM ACETATE 667MG CAPSULE PO SCH (08:09)
[2021-06-03] MEDS: METOLAZONE 2.5MG TABLET NG SCH ×2 (08:09→17:39)
[2021-06-03 08:36] LABS: BG BASE EXCESS 4.9 mmol/L (-2.0-2.0); BG CARBOXYHEMOGLOBIN 0.3 % (0.5-1.5); BG DEOXYHEMOGLOBIN 1.5 % (0.0-5.0); BG FRACTION INSPIRED OXYGEN 75; BG HCO3 ACT 29.9 mmol/L (22.0-26.0); BG METHEMOGLOBIN 0.2 % (0.0-1.5); BG OXYGEN SATURATION 98.5 % (92.0-98.5); BG PCO2 45.8 mmHg (35.0-45.0); BG PH 7.432 (7.350-7.450); BG PO2 146.1 mmHg (75.0-100.0); BG SAMPLE SITE LEFT RADIAL; BG TOTAL HEMOGLOBIN 10.1 g/dL (12.0-18.0); BG TOTAL RESPIRATORY RATE 34 b/min; BG VENT MODE PRVC
[2021-06-03] MEDS: FENTANYL CITRATE/PF 2,500 MCG in SODIUM CHLORIDE 0.9% 200 ML IV PRN ×2 (09:00→17:41)
[2021-06-03] MEDS: MIDAZOLAM HCL 100 MG in SODIUM CHLORIDE 0.9% 80 ML IV PRN ×2 (09:00→17:40)
[2021-06-03 10:33] LABS: PLATELET ESTIMATE NORMAL
[2021-06-03] MEDS ORDERED: PROPOFOL 10MG/ML 100ML 100 ML IV PRN (17:45)
[2021-06-03] MEDS ORDERED: HYDROCODONE/ACETAMINOPHEN 5/325MG TABLET PO PRN (18:00)
[2021-06-03] MEDS ORDERED: NALOXONE HCL 0.4MG/ML VIAL IV PRN (18:15)
[2021-06-03] MEDS ORDERED: AMLODIPINE 5MG TABLET PO SCH (19:00)
[2021-06-03] MEDS: AMLODIPINE 5MG TABLET PO SCH (19:53)
[2021-06-04] VITALS (47 sets, daily range): BP systolic 117–158; BP diastolic 63–100
[2021-06-04] MEDS: ALBUTEROL (0.083%) 2.5MG/3ML NEB HHN SCH ×6 (00:31→20:48)
[2021-06-04] MEDS: METOCLOPRAMIDE HCL 10MG/2ML VIAL IV SCH ×3 (04:54→21:23)
[2021-06-04] MEDS: MIDAZOLAM HCL 100 MG in SODIUM CHLORIDE 0.9% 80 ML IV PRN ×4 (04:55→21:41)
[2021-06-04] MEDS: FENTANYL CITRATE/PF 2,500 MCG in SODIUM CHLORIDE 0.9% 200 ML IV PRN ×3 (04:56→18:24)
[2021-06-04 06:32] LABS: BASOPHILS % 0.2 % (0.0-2.0); EOSINOPHILS % 0.6 % (0.0-5.0); HEMATOCRIT. 27.9 % (36.0-48.0); HEMOGLOBIN. 8.6 g/dL (12.0-16.0); LYMPHOCYTES % 7.9 % (20.0-50.0); MEAN CORPUSCULAR VOLUME 81.1 fL (81.0-99.0); MEAN PLATELET VOLUME 11.2 fl (7.4-10.4); MONOCYTES % 4.5 % (2.0-8.0); NEUTROPHILS % 86.8 % (40.0-76.0); PLATELET 255 x1000/uL (130-400); RED BLOOD CELL COUNT 3.45 mill/uL (4.2-5.4); RED CELL DISTRIBUTION WIDTH 15.9 % (11.6-14.6)
[2021-06-04 08:17] LABS: BG BASE EXCESS 3.8 mmol/L (-2.0-2.0); BG CARBOXYHEMOGLOBIN 0.1 % (0.5-1.5); BG DEOXYHEMOGLOBIN 6.2 % (0.0-5.0); BG FRACTION INSPIRED OXYGEN 60; BG HCO3 ACT 28.3 mmol/L (22.0-26.0); BG METHEMOGLOBIN 0.3 % (0.0-1.5); BG OXYGEN SATURATION 93.8 % (92.0-98.5); BG OXYHEMOGLOBIN 93.4 % (94.0-97.0); BG PCO2 42.2 mmHg (35.0-45.0); BG PH 7.444 (7.350-7.450); BG PO2 73.8 mmHg (75.0-100.0); BG SAMPLE SITE RIGHT RADIAL; BG TOTAL HEMOGLOBIN 9.3 g/dL (12.0-18.0); BG VENT MODE VENT - PRVC
[2021-06-04] MEDS: METOLAZONE 2.5MG TABLET NG SCH ×2 (08:18→16:47)
[2021-06-04] MEDS: METHYLPREDNISOLONE SOD SUCC 40 MG/ML VIAL IV SCH ×2 (08:18→16:47)
[2021-06-04] MEDS: AMLODIPINE 5MG TABLET PO SCH (08:18)
[2021-06-04] MEDS: FAMOTIDINE 20MG/2ML VIAL IV SCH (21:23)
[2021-06-05] VITALS (48 sets, daily range): BP systolic 88–146; BP diastolic 58–90
[2021-06-05] MEDS: ALBUTEROL (0.083%) 2.5MG/3ML NEB HHN SCH ×6 (00:12→20:23)
[2021-06-05] MEDS: FENTANYL CITRATE/PF 2,500 MCG in SODIUM CHLORIDE 0.9% 200 ML IV PRN ×3 (02:21→23:00)
[2021-06-05] MEDS: METOCLOPRAMIDE HCL 10MG/2ML VIAL IV SCH ×3 (05:30→20:17)
[2021-06-05 05:48] LABS: CHLORIDE 106 mEq/L (98-107)
[2021-06-05 05:50] LABS: HEMATOCRIT 28.9 % (36.0-48.0); HEMOGLOBIN 8.9 g/dL (12.0-16.0); MEAN CORPUSCULAR HEMOGLOBIN 25.3 pg (28.0-32.0); PLATELET 263 x1000/uL (130-400); RED BLOOD CELL COUNT 3.53 mill/uL (4.2-5.4); RED CELL DISTRIBUTION WIDTH 16.1 % (11.6-14.6)
[2021-06-05] MEDS: MIDAZOLAM HCL 100 MG in SODIUM CHLORIDE 0.9% 80 ML IV PRN ×2 (05:53→18:36)
[2021-06-05] MEDS: METHYLPREDNISOLONE SOD SUCC 40 MG/ML VIAL IV SCH ×2 (08:21→17:23)
[2021-06-05] MEDS: AMLODIPINE 5MG TABLET PO SCH (08:22)
[2021-06-05] MEDS: LACTOBACILLUS GG CAPSULE PO SCH (08:22)
[2021-06-05] MEDS: METOLAZONE 2.5MG TABLET NG SCH ×2 (08:22→17:23)
[2021-06-05 09:16] LABS: BG BASE EXCESS 4.3 mmol/L (-2.0-2.0); BG CARBOXYHEMOGLOBIN 0.6 % (0.5-1.5); BG DEOXYHEMOGLOBIN 0.8 % (0.0-5.0); BG FRACTION INSPIRED OXYGEN 90; BG HCO3 ACT 29.6 mmol/L (22.0-26.0); BG METHEMOGLOBIN 0.4 % (0.0-1.5); BG OXYGEN SATURATION 99.2 % (92.0-98.5); BG OXYHEMOGLOBIN 98.2 % (94.0-97.0); BG PCO2 48.5 mmHg (35.0-45.0); BG PH 7.404 (7.350-7.450); BG PO2 174.7 mmHg (75.0-100.0); BG SAMPLE SITE LEFT RADIAL; BG TOTAL HEMOGLOBIN 9.5 g/dL (12.0-18.0); BG TOTAL RESPIRATORY RATE 30 b/min; BG VENT MODE VENT- PRVC
[2021-06-05] MEDS: FAMOTIDINE 20MG/2ML VIAL IV SCH (20:17)
[2021-06-05] MEDS: ENOXAPARIN 120MG/0.8ML SYR SUBCUT SCH (20:18)
[2021-06-06] VITALS (51 sets, daily range): BP systolic 83–163; BP diastolic 46–116
[2021-06-06] MEDS: ALBUTEROL (0.083%) 2.5MG/3ML NEB HHN SCH ×6 (00:14→20:33)
[2021-06-06] MEDS: METOCLOPRAMIDE HCL 10MG/2ML VIAL IV SCH ×3 (04:02→20:56)
[2021-06-06] MEDS: MIDAZOLAM HCL 100 MG in SODIUM CHLORIDE 0.9% 80 ML IV PRN ×2 (06:10→17:04)
[2021-06-06] MEDS ORDERED: CEFEPIME HCL 1000MG/VIAL INJ IM ONE (06:45)
[2021-06-06] MEDS ORDERED: VANCOMYCIN 1 G PREMIX 200 ML IV SCH (06:45)
[2021-06-06] MEDS ORDERED: CEFEPIME 2GM PREMIX 100 ML IV SCH (08:00)
[2021-06-06] MEDS: ENOXAPARIN 120MG/0.8ML SYR SUBCUT SCH ×2 (08:15→20:56)
[2021-06-06] MEDS: AMLODIPINE 5MG TABLET PO SCH (08:15)
[2021-06-06] MEDS: METOLAZONE 2.5MG TABLET NG SCH ×2 (08:15→16:42)
[2021-06-06] MEDS: LACTOBACILLUS GG CAPSULE PO SCH (08:15)
[2021-06-06] MEDS: METHYLPREDNISOLONE SOD SUCC 40 MG/ML VIAL IV SCH ×2 (08:16→16:42)
[2021-06-06] MEDS: PROPOFOL 10MG/ML 100ML 100 ML IV PRN ×3 (08:24→21:02)
[2021-06-06 08:57] LABS: BG BASE EXCESS 2.3 mmol/L (-2.0-2.0); BG CARBOXYHEMOGLOBIN 0.1 % (0.5-1.5); BG DEOXYHEMOGLOBIN 5.6 % (0.0-5.0); BG FRACTION INSPIRED OXYGEN 100; BG HCO3 ACT 25.7 mmol/L (22.0-26.0); BG METHEMOGLOBIN 0.4 % (0.0-1.5); BG OXYGEN SATURATION 94.4 % (92.0-98.5); BG OXYHEMOGLOBIN 93.9 % (94.0-97.0); BG PCO2 35.2 mmHg (35.0-45.0); BG PH 7.481 (7.350-7.450); BG PO2 71.6 mmHg (75.0-100.0); BG SAMPLE SITE LEFT RADIAL; BG TOTAL HEMOGLOBIN 10.4 g/dL (12.0-18.0); BG TOTAL RESPIRATORY RATE 31 b/min; BG VENT MODE VENT- PRVC
[2021-06-06 09:09] LABS: HEMATOCRIT. 30.8 % (36.0-48.0); HEMOGLOBIN. 9.4 g/dL (12.0-16.0); MEAN CORPUSCULAR HEMOGLOBIN 25.3 pg (28.0-32.0); MEAN CORPUSCULAR VOLUME 83.1 fL (81.0-99.0); MEAN PLATELET VOLUME 10.4 fl (7.4-10.4); PLATELET 284 x1000/uL (130-400); RED BLOOD CELL COUNT 3.71 mill/uL (4.2-5.4); RED CELL DISTRIBUTION WIDTH 16.4 % (11.6-14.6)
[2021-06-06 09:17] LABS: CHLORIDE 107 mEq/L (98-107)
[2021-06-06] MEDS: VANCOMYCIN 2,000 MG in DEXT 5% WATER 500 ML IV SCH ×3 (10:00→11:55)
[2021-06-06] MEDS: CEFEPIME 2,000 MG in DEXT 5% WATER 100 ML IV SCH ×4 (10:00→21:03)
[2021-06-06 10:15] LABS: PLATELET ESTIMATE NORMAL
[2021-06-06] MEDS ORDERED: POTASSIUM CHLORIDE 20MEQ/PACKET PO SCH (10:45)
[2021-06-06] MEDS: FENTANYL CITRATE/PF 2,500 MCG in SODIUM CHLORIDE 0.9% 200 ML IV PRN ×2 (11:29→22:54)
[2021-06-06] MEDS ORDERED: VANCOMYCIN 750 MG PREMIX 150 ML IV NR (13:30)
[2021-06-06] MEDS: ACETAMINOPHEN 650MG/20.3ML UDC PO PRN (13:33)
[2021-06-06] MEDS: FAMOTIDINE 20MG/2ML VIAL IV SCH (20:56)
[2021-06-06] MEDS ORDERED: VANCOMYCIN 1250MG in DEXTROSE 5% WATER 250ML IV SCH (22:00)
[2021-06-07] VITALS (48 sets, daily range): BP systolic 97–151; BP diastolic 51–109
[2021-06-07 00:15] LABS: CLARITY URINE TURBID (CLEAR); COLOR URINE YELLOW (YELLOW); KETONES URINE NEGATIVE (NEGATIVE); LEUKOCYTE ESTERASE URINE 3+ (NEGATIVE); NITRITE URINE POSITIVE (NEGATIVE); OCCULT BLOOD URINE 3+ (NEGATIVE); PH URINE 5.5 (4.5-8.0); PROTEIN URINE 1+ (NEGATIVE); SPECIFIC GRAVITY URINE 1.018 (1.005-1.030); UROBILINOGEN URINE 0.2 E.U./dL (0.2-1.0)
[2021-06-07] MEDS: ALBUTEROL (0.083%) 2.5MG/3ML NEB HHN SCH ×6 (01:24→21:04)
[2021-06-07] MEDS: VANCOMYCIN 1250MG in DEXTROSE 5% WATER 250ML IV SCH ×2 (03:46→21:38)
[2021-06-07] MEDS: METOCLOPRAMIDE HCL 10MG/2ML VIAL IV SCH ×3 (03:46→20:16)
[2021-06-07] MEDS: CEFEPIME 2,000 MG in DEXT 5% WATER 100 ML IV SCH ×3 (05:49→21:39)
[2021-06-07] MEDS: MIDAZOLAM HCL 100 MG in SODIUM CHLORIDE 0.9% 80 ML IV PRN ×2 (05:50→15:04)
[2021-06-07 06:16] LABS: HEMATOCRIT. 25.9 % (36.0-48.0); MEAN CORPUSCULAR HEMOGLOBIN 25.6 pg (28.0-32.0); MEAN CORPUSCULAR VOLUME 82.6 fL (81.0-99.0); MEAN PLATELET VOLUME 10.9 fl (7.4-10.4); PLATELET 227 x1000/uL (130-400); RED BLOOD CELL COUNT 3.14 mill/uL (4.2-5.4); RED CELL DISTRIBUTION WIDTH 16.4 % (11.6-14.6)
[2021-06-07 06:26] LABS: CHLORIDE 110 mEq/L (98-107)
[2021-06-07] MEDS: METHYLPREDNISOLONE SOD SUCC 40 MG/ML VIAL IV SCH ×2 (08:57→17:21)
[2021-06-07] MEDS: ENOXAPARIN 120MG/0.8ML SYR SUBCUT SCH ×2 (08:57→20:38)
[2021-06-07] MEDS: LACTOBACILLUS GG CAPSULE PO SCH (08:58)
[2021-06-07] MEDS: METOLAZONE 2.5MG TABLET NG SCH ×3 (08:58→17:21)
[2021-06-07] MEDS: AMLODIPINE 5MG TABLET PO SCH (08:58)
[2021-06-07] MEDS: ACETAMINOPHEN 650MG/20.3ML UDC PO PRN (09:04)
[2021-06-07 09:35] LABS: BG BASE EXCESS 4.5 mmol/L (-2.0-2.0); BG CARBOXYHEMOGLOBIN 0.4 % (0.5-1.5); BG DEOXYHEMOGLOBIN 0.4 % (0.0-5.0); BG FRACTION INSPIRED OXYGEN 100; BG HCO3 ACT 29.5 mmol/L (22.0-26.0); BG METHEMOGLOBIN 0.2 % (0.0-1.5); BG OXYGEN SATURATION 99.6 % (92.0-98.5); BG PCO2 46.7 mmHg (35.0-45.0); BG PH 7.419 (7.350-7.450); BG PO2 209.2 mmHg (75.0-100.0); BG TOTAL HEMOGLOBIN 8.8 g/dL (12.0-18.0); BG VENT MODE PRVC
[2021-06-07] MEDS: FENTANYL CITRATE/PF 2,500 MCG in SODIUM CHLORIDE 0.9% 200 ML IV PRN ×2 (10:25→20:20)
[2021-06-07 10:28] LABS: PLATELET ESTIMATE NORMAL
[2021-06-07] MEDS ORDERED: MORPHINE SULFATE 2 MG/ML CPJ (NOT FOR IM USE) IV PRN (11:30)
[2021-06-07] MEDS: LORAZEPAM 2MG/ML CPJ IV PRN ×2 (15:26→20:16)
[2021-06-07] MEDS: FAMOTIDINE 20MG/2ML VIAL IV SCH (20:16)
[2021-06-08] VITALS (49 sets, daily range): BP systolic 108–156; BP diastolic 61–87
[2021-06-08] MEDS: MIDAZOLAM HCL 100 MG in SODIUM CHLORIDE 0.9% 80 ML IV PRN ×2 (00:18→13:34)
[2021-06-08] MEDS: LORAZEPAM 2MG/ML CPJ IV PRN ×3 (00:18→11:33)
[2021-06-08] MEDS: ALBUTEROL (0.083%) 2.5MG/3ML NEB HHN SCH ×6 (00:26→20:06)
[2021-06-08] MEDS: DEXT 5%/0.45% NACL 1000ML 1,000 ML IV SCH ×2 (01:46→21:38)
[2021-06-08 04:43] LABS: HEMATOCRIT. 25.1 % (36.0-48.0); HEMOGLOBIN. 7.9 g/dL (12.0-16.0); MEAN CORPUSCULAR HEMOGLOBIN 25.7 pg (28.0-32.0); MEAN CORPUSCULAR VOLUME 81.7 fL (81.0-99.0); PLATELET 233 x1000/uL (130-400); RED BLOOD CELL COUNT 3.07 mill/uL (4.2-5.4); RED CELL DISTRIBUTION WIDTH 16.4 % (11.6-14.6)
[2021-06-08 04:51] LABS: CHLORIDE 106 mEq/L (98-107)
[2021-06-08 04:52] LABS: INR 1.1; PROTHROMBIN TIME 11.8 sec (9.6-11.0)
[2021-06-08 04:57] LABS: TOTAL IRON BINDING CAPACITY 184 ug/dL (250-450)
[2021-06-08 05:25] LABS: VITAMIN B12 SERUM >2000 pg/mL pg/mL (211-911)
[2021-06-08] MEDS: METOCLOPRAMIDE HCL 10MG/2ML VIAL IV SCH ×3 (05:40→21:36)
[2021-06-08] MEDS: CEFEPIME 2,000 MG in DEXT 5% WATER 100 ML IV SCH ×3 (05:40→21:38)
[2021-06-08] MEDS: METOLAZONE 2.5MG TABLET NG SCH ×2 (08:52→16:55)
[2021-06-08] MEDS: METHYLPREDNISOLONE SOD SUCC 40 MG/ML VIAL IV SCH ×2 (08:52→16:55)
[2021-06-08] MEDS: AMLODIPINE 5MG TABLET PO SCH (08:52)
[2021-06-08] MEDS: LACTOBACILLUS GG CAPSULE PO SCH (08:53)
[2021-06-08 09:07] LABS: HEMATOCRIT 29.3 % (36.0-48.0)
[2021-06-08 09:18] LABS: INR 1.1; PROTHROMBIN TIME 11.7 sec (9.6-11.0)
[2021-06-08] MEDS: FENTANYL CITRATE/PF 2,500 MCG in SODIUM CHLORIDE 0.9% 200 ML IV PRN ×2 (09:54→21:39)
[2021-06-08 10:05] LABS: BG BASE EXCESS 4.4 mmol/L (-2.0-2.0); BG CARBOXYHEMOGLOBIN 0.2 % (0.5-1.5); BG DEOXYHEMOGLOBIN 0.8 % (0.0-5.0); BG FRACTION INSPIRED OXYGEN 100; BG HCO3 ACT 29.1 mmol/L (22.0-26.0); BG METHEMOGLOBIN 0.3 % (0.0-1.5); BG OXYGEN SATURATION 99.2 % (92.0-98.5); BG OXYHEMOGLOBIN 98.7 % (94.0-97.0); BG PCO2 44.2 mmHg (35.0-45.0); BG PH 7.436 (7.350-7.450); BG PO2 200.8 mmHg (75.0-100.0); BG SAMPLE SITE LEFT RADIAL; BG TOTAL HEMOGLOBIN 9.9 g/dL (12.0-18.0); BG VENT MODE PRVC
[2021-06-08] MEDS ORDERED: MIDAZOLAM HCL 5 MG/5 ML VIAL ONE (11:14)
[2021-06-08] MEDS ORDERED: DIAZEPAM 5 MG/ML 2ML CPJ ONE (11:14)
[2021-06-08] MEDS ORDERED: FENTANYL CITRATE/PF 50MCG/ML 2ML VIAL ONE (11:14)
[2021-06-08 13:16] LABS: PLATELET ESTIMATE NORMAL
[2021-06-08] MEDS ORDERED: MIDAZOLAM HCL 100 MG in SODIUM CHLORIDE 0.9% 80 ML IV PRN (13:45)
[2021-06-08] MEDS: VANCOMYCIN 1250MG in DEXTROSE 5% WATER 250ML IV SCH (16:55)
[2021-06-08] MEDS: FAMOTIDINE 20MG/2ML VIAL IV SCH (21:36)
[2021-06-09] VITALS (49 sets, daily range): BP systolic 104–151; BP diastolic 65–106
[2021-06-09] MEDS: ALBUTEROL (0.083%) 2.5MG/3ML NEB HHN SCH ×6 (00:10→20:23)
[2021-06-09] MEDS: METOCLOPRAMIDE HCL 10MG/2ML VIAL IV SCH ×3 (04:14→20:51)
[2021-06-09] MEDS: LORAZEPAM 2MG/ML CPJ IV PRN ×2 (04:14→09:25)
[2021-06-09] MEDS: CEFEPIME 2,000 MG in DEXT 5% WATER 100 ML IV SCH ×3 (05:05→21:00)
[2021-06-09 06:15] LABS: HEMATOCRIT. 30.4 % (36.0-48.0); HEMOGLOBIN. 9.5 g/dL (12.0-16.0); MEAN CORPUSCULAR VOLUME 82.5 fL (81.0-99.0); MEAN PLATELET VOLUME 10.9 fl (7.4-10.4); PLATELET 284 x1000/uL (130-400); RED BLOOD CELL COUNT 3.68 mill/uL (4.2-5.4); RED CELL DISTRIBUTION WIDTH 16.4 % (11.6-14.6)
[2021-06-09 08:01] LABS: PLATELET ESTIMATE NORMAL
[2021-06-09] MEDS: LACTOBACILLUS GG CAPSULE PO SCH ×2 (09:00→09:21)
[2021-06-09] MEDS: METOLAZONE 2.5MG TABLET NG SCH ×3 (09:00→17:00)
[2021-06-09] MEDS: AMLODIPINE 5MG TABLET PO SCH ×2 (09:00→09:21)
[2021-06-09] MEDS: METHYLPREDNISOLONE SOD SUCC 40 MG/ML VIAL IV SCH ×2 (09:20→17:05)
[2021-06-09] MEDS: VANCOMYCIN 1250MG in DEXTROSE 5% WATER 250ML IV SCH (09:21)
[2021-06-09] MEDS: FENTANYL CITRATE/PF 2,500 MCG in SODIUM CHLORIDE 0.9% 200 ML IV PRN ×2 (09:22→23:09)
[2021-06-09 09:49] LABS: BG BASE EXCESS 3.8 mmol/L (-2.0-2.0); BG CARBOXYHEMOGLOBIN 0.3 % (0.5-1.5); BG DEOXYHEMOGLOBIN 1.3 % (0.0-5.0); BG FRACTION INSPIRED OXYGEN 100; BG HCO3 ACT 28.6 mmol/L (22.0-26.0); BG METHEMOGLOBIN 0.9 % (0.0-1.5); BG OXYGEN SATURATION 98.7 % (92.0-98.5); BG OXYHEMOGLOBIN 97.5 % (94.0-97.0); BG PCO2 44.5 mmHg (35.0-45.0); BG PH 7.426 (7.350-7.450); BG PO2 197.2 mmHg (75.0-100.0); BG SAMPLE SITE LEFT RADIAL; BG TOTAL HEMOGLOBIN 10.3 g/dL (12.0-18.0); BG VENT MODE PRVC
[2021-06-09 10:43] LABS: CHLORIDE 104 mEq/L (98-107)
[2021-06-09] MEDS: DEXT 5%/0.45% NACL 1000ML 1,000 ML IV SCH (17:05)
[2021-06-09] MEDS: FAMOTIDINE 20MG/2ML VIAL IV SCH (20:51)
[2021-06-09] MEDS ORDERED: PANTOPRAZOLE SODIUM 40 MG/VIAL IV SCH (21:00)
== END 2021-06-10 04:00 | DRG 4 ==
LOC: ER 22:23 → MICUSO 05-02 00:36 → EDBEDREQDT 05-02 00:52 → EDBEDREQSVC 05-02 00:52 → EDBEDREQ 05-02 00:52 → EDBEDREQTM 05-02 00:52 → 7WST 05-02 10:08 → MICUSO 05-09 14:30 → 5EST 05-11 22:55 → CVICU 05-13 03:50
PROVIDERS: ADMIT Family Medicine Adult Medicine; ATTEND Family Medicine Adult Medicine
PROC: 02HV33Z Insertion of Infusion Device into Superior Vena Cava, Percutaneous Approach (ICD-10-PCS; 2021-05-05)
PROC: B548ZZA Ultrasonography of Superior Vena Cava, Guidance (ICD-10-PCS; 2021-05-05)
PROC: 5A09457 Assistance with Respiratory Ventilation, 24-96 Consecutive Hours, Continuous Positive Airway Pressure (ICD-10-PCS; 2021-05-07)
PROC: 5A0935A Assistance with Respiratory Ventilation, Less than 24 Consecutive Hours, High Flow/Velocity Cannula (ICD-10-PCS; 2021-05-08)
PROC: 5A0935A Assistance with Respiratory Ventilation, Less than 24 Consecutive Hours, High Flow/Velocity Cannula (ICD-10-PCS; 2021-05-09)
PROC: 5A0935A Assistance with Respiratory Ventilation, Less than 24 Consecutive Hours, High Flow/Velocity Cannula (ICD-10-PCS; 2021-05-10)
PROC: 5A0935A Assistance with Respiratory Ventilation, Less than 24 Consecutive Hours, High Flow/Velocity Cannula (ICD-10-PCS; 2021-05-11)
PROC: 5A0935A Assistance with Respiratory Ventilation, Less than 24 Consecutive Hours, High Flow/Velocity Cannula (ICD-10-PCS; 2021-05-12)
PROC: 5A1955Z Respiratory Ventilation, Greater than 96 Consecutive Hours (ICD-10-PCS; principal; 2021-05-13)
PROC: 0BH17EZ Insertion of Endotracheal Airway into Trachea, Via Natural or Artificial Opening (ICD-10-PCS; 2021-05-13)
PROC: 5A09357 Assistance with Respiratory Ventilation, Less than 24 Consecutive Hours, Continuous Positive Airway Pressure (ICD-10-PCS; 2021-05-13)
PROC: 05HY33Z Insertion of Infusion Device into Upper Vein, Percutaneous Approach (ICD-10-PCS; 2021-05-27)
PROC: B54NZZA Ultrasonography of Left Upper Extremity Veins, Guidance (ICD-10-PCS; 2021-05-27)
PROC: 0B113F4 Bypass Trachea to Cutaneous with Tracheostomy Device, Percutaneous Approach (ICD-10-PCS; 2021-06-02)
PROC: 30233N1 Transfusion of Nonautologous Red Blood Cells into Peripheral Vein, Percutaneous Approach (ICD-10-PCS; 2021-06-08)
DX: A41.89 Other specified sepsis (principal); U07.1 COVID-19; J12.82 Pneumonia due to coronavirus disease 2019; R65.21 Severe sepsis with septic shock; N17.0 Acute kidney failure with tubular necrosis; E43 Unspecified severe protein-calorie malnutrition; J96.01 Acute respiratory failure with hypoxia; G93.41 Metabolic encephalopathy; E87.1 Hypo-osmolality and hyponatremia; E87.0 Hyperosmolality and hypernatremia; E87.2 Acidosis; I82.621 Acute embolism and thrombosis of deep veins of right upper extremity; N39.0 Urinary tract infection, site not specified; Z68.41 Body mass index [BMI] 40.0-44.9, adult; Z99.11 Dependence on respirator [ventilator] status; E66.01 Morbid (severe) obesity due to excess calories; E87.5 Hyperkalemia; N18.1 Chronic kidney disease, stage 1; D64.9 Anemia, unspecified; E83.39 Other disorders of phosphorus metabolism; E83.41 Hypermagnesemia; E87.6 Hypokalemia; I46.9 Cardiac arrest, cause unspecified; B96.5 Pseudomonas (aeruginosa) (mallei) (pseudomallei) as the cause of diseases classified elsewhere; R13.12 Dysphagia, oropharyngeal phase; J98.2 Interstitial emphysema
CPT/HCPCS: 31500; 36415; 36600; 71045; 76700; 76770; 76937; 80048; 80053; 80202; 81003; 82375; 82436; 82570; 82607; 82728; 82746; 82805; 82962; 83036; 83540; 83550; 83605; 83615; 83735; 83880; 84100; 84132; 84133; 84145; 84300; 84478; 84484; 85014; 85018; 85025; 85027; 85044; 85049; 85379; 85384; 86140; 86850; 86900; 86920; 87070; 87106; 87186; 87426; 93005; 93971; 94002; 94003; 94640; 94660; 99291; A6261; C1725; C1893; C9113; J0456; J0692; J0696; J1100; J1200; J1265; J1650; J1815; J1940; J2060; J2185; J2250; J2270; J2370; J2405; J2704; J2710; J2765; J2920; J3010; J3370; J3490; J7030; J7040; J7050; J7060; J7070; J7131; J7626; P9016; A4315